=== PATIENT | male | born 1960 | race Caucasian/White ===

== ENCOUNTER 2019-09-03 02:09 | Emergency (ER) | payer MEDICARE, SELFPAY ==
[2019-09-03 02:11] VITALS: BP 212/94; PULSE 85; RESP 16; TEMP 36.3; O2SAT 96; BMI 42.3
--- NOTE | 2019-09-03 02:19 | ED.VIS.GEN ---
History of Present Illness Chief Complaint: Dental Informant: Patient Narrative: Presents with 2 to 3-day history of left upper dental pain and some facial swelling. He has no fever chills or difficulty swallowing. He cannot get in to see a dentist secondary to coronavirus. Past Medical History - Allergies and Home Meds Allergies/Adverse Reactions: Allergies acetaminophen [From Tylenol] Allergy (Verified 09/03/19 02:11) Vomiting LYMPHEDEMA ibuprofen Allergy (Verified 09/03/19 02:11) Vomiting LYPHEMEDMA codeine Adverse Reaction (Verified 10/04/13 00:43) Nausea Primary Care Physician: Juani Kimball MD [Primary Care Provider] - Past Medical History: - - Lymphedema, depression, chronic pain Smoking Status: Former smoker Review of Systems All systems negative except as indicated General: Denies: Fever Eyes: Denies: Visual changes - bilaterally ENT: Reports: - - Dental pain as in HPI Cardiovascular: Denies: Chest pain Gastrointestinal: Denies: Vomiting Skin: Denies: Rash Neurological: Denies: Headache Hematologic: Denies: Easy bleeding Physical Exam Vital Signs/Narrative: Vital Signs Temp Pulse Resp BP Pulse Ox 09/03/19 02:11 97.3 F L 85 16 212/94 H 96 General: Well nourished, Well developed Head: Normocephalic ENT: - - Dental exam shows tenderness over the left upper first molar, there is some edema but no periapical abscess that can be drained. Normal soft palate. Normal voice. Neck: Supple, Nontender Cardiovascular: Regular rate Respiratory: No distress Skin: Normal color Neurological: Negative for: Left side facial droop Diagnostic/Tx/Re-eval - Medical Decision Making Patient has dental pain, he has a dental infection he does not have a drainable abscess I will discharge with antibiotics. He is on chronic analgesia for home therefore I will give him analgesia in the ER and he can take his regular analgesia at home. ED Disposition - Plan for ED Patient: Disposition: Home or Assisted Living Diagnosis: Dental infection Instructions: Dental Abscess, ED Abscess Tooth Prescriptions: Clindamycin [Cleocin] 300 mg PO TID #42 cap Transmission Status: Pending to [id number] Referrals: Juani Kimball MD [Primary Care Provider] -
[2019-09-03] MEDS: HYDROmorphone 1 MG/ML Syringe SC (02:26)
[2019-09-03] MEDS: Clindamycin HCl 150 MG Capsule 300 MG PO (02:29)
[2019-09-03 02:49] VITALS: BP 186/78; PULSE 82; RESP 16; O2SAT 96
== END 2019-09-03 02:50 | disposition home or self-care (01) ==
LOC: ED 02:50
PROVIDERS: Emergency Provider Emergency Medicine; PCP Internal Medicine
DX: K04.7 Periapical abscess without sinus (principal); Z87.891 Personal history of nicotine dependence
CPT/HCPCS: 96372; 99283

== ENCOUNTER 2020-09-08 14:18 | Inpatient (IN) | payer MEDICARE, SELFPAY ==
[2020-09-08] VITALS (10 sets, daily range): BP systolic 139–190; BP diastolic 76–103; PULSE 74–124; RESP 15–19; TEMP 36.7–37.1; O2SAT 92–100; BMI 38.9; BMI 39.1
--- NOTE | 2020-09-08 14:34 | ED.RN ---
and pt reported slurred speech and rt side feeling funny and face twisted up with slurred speech' upon squad getting to house cinn scale neg. bs wnl. pt unable to get thoughts out navneet more complex. hx tbi 11yrs ago but recent wax and wans of confusion and memory issues per . way worse though yesterday
--- NOTE | 2020-09-08 14:37 | EKG12_ITS ---
Test Reason : STROKE Blood Pressure : / mmHG Vent. Rate : 091 BPM Atrial Rate : 091 BPM P-R Int : 188 ms QRS Dur : 100 ms QT Int : 404 ms P-R-T Axes : 045 -34 029 degrees QTc Int : 496 ms Poor data quality, interpretation may be adversely affected Normal sinus rhythm Left axis deviation Poor R wave progression Abnormal ECG Confirmed by LUIS WINN, ANNA ([id number]), managing editor JUSTIN COUGHLIN ([id number]) on 09/11/2020 11:03:51 AM Referred By: Marques Tubbs Confirmed By:ANNA SMITH MD
--- NOTE | 2020-09-08 14:37 | CT_ITS ---
We are attempting to reach an attending provider to discuss findings. An addendum with communication details will be sent when the communication is complete. STUDY: CT BRAIN WITHOUT CONTRAST REASON FOR EXAM: Male, 60 years old. RADIATION DOSAGE (If Supplied By Facility): CTDIvol = ( ) mGy, DLP = ( ) mGycm TECHNIQUE: Transaxial CT imaging of the brain was performed without administration of intravenous contrast material. Individualized dose optimization techniques were used for this CT. COMPARISON: No relevant priors. FINDINGS: Examination is mildly technically suboptimal. Image noise is increased and cramer-white matter differentiation is poor. Diagnostic information is available. Brain parenchyma is without focal lesions, mass effect, acute intracranial hemorrhage, extra parenchymal fluid collections, hydrocephalus or herniation. The skull is intact. CT/STROKE Brain/Head without Cont IMPRESSION: 1. Normal CT brain. Electronically Signed: Rigoberto Bergeron MD at 15:14 EDT Tel , Service support ,
--- NOTE | 2020-09-08 14:37 | RAD_ITS ---
STUDY: X-RAY CHEST REASON FOR EXAM: Male, 60 years old. Neuro deficit, acute, stroke suspected TECHNIQUE: Frontal view of the chest COMPARISON: None. FINDINGS: Inspiratory volumes are low. There is possibly mild pulmonary edema. Cardiac silhouette is moderately enlarged. There is likely basal atelectasis. There are no moderate or large pleural effusions. There is no pneumothorax or regional opacities. Surgical anchors are implanted into the right humerus, rotator cuff repair. RAD/Chest 1 View IMPRESSION: Cardiomegaly, possibly mild pulmonary edema. Atelectasis. Electronically Signed: Rigoberto Bergeron MD at 15:20 EDT Tel , Service support ,
--- NOTE | 2020-09-08 14:38 | CT_ITS ---
We are attempting to reach an attending provider to discuss findings. An addendum with communication details will be sent when the communication is complete. STUDY: CTA HEAD AND NECK WITH CONTRAST REASON FOR EXAM: Male, 60 years old. Neuro deficit, acute, stroke suspected RADIATION DOSAGE (If Supplied By Facility): CTDIvol = ( 23.52 ) mGy, DLP = ( 1084.74 ) mGycm TECHNIQUE: CT angiography was performed with a multi-detector CT scanner. Data acquisition was obtained from the skull base through the vertex following intravenous administration of IV 100ML ISOVUE 370. MIP images were reconstructed from the axial data set. Post-processing of the angiographic images was performed, with multiplanar reformation and 3D reconstruction. Individualized dose optimization techniques were used for this CT. COMPARISON: No relevant priors. FINDINGS: Normal bilateral petrous carotid arteries. Normal right cavernous carotid artery with a normal supraclinoid bifurcation. Normal left cavernous carotid artery with a normal supraclinoid bifurcation. Normal right A1 segments of the anterior cerebral artery. Normal left A1 segments of the anterior cerebral artery. Normal intact anterior communicating artery (ACOM). Normal bilateral A2 segments of the anterior cerebral arteries. Normal right M1 and M2 segments of the middle cerebral arteries, with a normal M1 bifurcation. Normal left M1 and M2 segments of the middle cerebral arteries, with a normal M1 bifurcation. Posterior commuting arteries are not seen. Normal bilateral vertebral arteries. Normal basilar artery with a normal basilar bifurcation. The visualized bilateral superior cerebellar (SCA) arteries are normal. Normal bilateral P1, P2 and visualized P3 segments of the posterior cerebral arteries. There is no demonstrated aneurysm of the [place] of [place]. AORTIC ARCH: Normal visualized aortic arch. Normal origins of the brachiocephalic, left common carotid, and left subclavian arteries. RIGHT CAROTID ARTERIES: Normal right common carotid artery (CCA). Normal right common carotid bulb. Normal origin of the right internal carotid (ICA) artery without a hemodynamically significant stenosis. Normal visualized cervical portion of the right internal carotid artery. Normal origin of the right external carotid artery (ECA). LEFT CAROTID ARTERIES: Normal left common carotid artery (CCA). Normal left common carotid bulb. Normal origin of the left internal carotid (ICA) artery without a hemodynamically significant stenosis. Normal visualized cervical portion of the left internal carotid artery. Normal origin of the left external carotid artery (ECA). VERTEBRAL ARTERIES: Normal bilateral vertebral arteries. CT/STROKE CTA Head AND Neck W/Con IMPRESSION: Patent craniocervical arteries. No intracranial large vessel occlusion. Electronically Signed: Rigoberto Bergeron MD at 15:17 EDT Tel , Service support ,
--- NOTE | 2020-09-08 14:39 | EDS_ITS ---
HPI History of Present Illness Chief Complaint: Neuro S/Sx Informant: patient, spouse/S.O. and EMS Onset/Context/Timing Onset: - (Unclear, see below) Current Severity: Mild Maximum Severity: Severe Worsened by: unk Relieved by: unk Associated Symptoms Associated Symptoms: Negative for Headache, Nausea, Vomiting and Chest Pain Narrative Narrative: Patient has a history of a remote TBI and has had memory problems ever since then. Yesterday, the noted that the memory problems were much worse than usual, he was having trouble remembering where he was while driving where he was going, etc. Today he was having trouble remembering her name which is very unusual. He is having trouble just remembering what he was going to say and is having trouble finishing sentences now. He states that just a little while ago he had tingling in the right side of his body, suggest that he had a facial droop on one side or the other, and the symptoms but all of that is better now except for the memory and speech problems. He cannot tell me how lo ng ago this started, he does not think he had any of the symptoms yesterday. He denies having any headache, chest pain, nausea, vomiting, lapses in consciousness. [facility] Medical History (Updated 09/08/20 @ 16:[address] Dwight Ely MD) Anxiety Asthma Chronic pain Depression Former smoker GERD (gastroesophageal reflux disease) History of wrist fracture Lymph edema Mild TBI (traumatic brain injury) Home Medications escitalopram oxalate 20 mg PO DAILY 10/04/13 [History Last Taken Unknown] furosemide 40 mg PO DAILY 10/04/13 [History Last Taken Unknown] oxycodone-acetaminophen 2 tab PO Q4H PRN PRN #90 tablet 06/07/15 [Rx Last Taken Unknown] Allergy/AdvReac Type Severity Reaction Status Date / Time acetaminophen [From Tylenol] Allergy Vomiting Verified 09/08/20 14:25 ibuprofen Allergy Vomiting Verified 09/08/20 14:25 codeine AdvReac Nausea Verified 09/08/20 14:25 Surgical History (Updated 09/08/20 @ 14:42 by Glendy Chery) History of carpal tunnel surgery History of knee joint replacement History of shoulder surgery Social History (Updated 09/08/20 @ 14:[address] Dwight Ely MD) household members: spouse Smoking Status: Former smoker ROS ROS ED Constitutional Constitutional ED: Denies chills or fever(s) Eyes Eyes: Denies change in vision or diplopia ENT ENT ED: Denies rhinorrhea or sore throat Cardiovascular Cardiovascular: Denies chest pain or palpitations Respiratory/Chest Respiratory/Chest: Denies cough or dyspnea Gastrointestinal Gastrointestinal: Denies abdominal pain, diarrhea, nausea or vomiting Genitourinary Genitourinary ED: Denies dysuria or hematuria Musculoskeletal Musculoskeletal: Denies back pain or neck pain Integumentary Denies abscess or rash Neurologic Neurologic: Reports as per HPI and paresthesias; Denies headache(s) or weakness Psychiatric Psychiatric: Denies anxiety or suicidal thoughts EXAM Physical Exam Const Vital Signs: 09/08/20 14:19 09/08/20 14:37 09/08/20 16:03 Temperature 98.7 F Temperature Source Temporal Pulse Rate 89 88 89 Respiratory Rate 16 17 15 Blood Pressure 176/99 H 190/103 H 167/94 H Blood Pressure Mean 124 132 118 Pulse Ox 98 96 96 Oxygen Delivery Method Room Air Room Air Room Air Positive well nourished and well developed General Appearance ED: well developed and NAD HEENT Reports moist mucous membranes normocephalic and atraumatic Eyes PERRL and EOMs intact bilaterally Neck full ROM and supple Resp normal respiratory effort and clear to auscultation bilaterally Cardio regular rate, regular rhythm and no murmurs GI non-tender and non-distended Auscultation: normoactive bowel sounds Palpation: soft Back/Spine no CVA tenderness General Back: other FROM Extremity normal to inspection Extremity Narrative: 2+ bilateral lower extremity edema, with chronic stasis changes, consistent with chronic abnormality per patient General Extremety ED: Yes edema; Negative for pulses abnormal or tenderness General Extremity: edema; Negative for pulses abnormal Neuro oriented x3, CN's II-XII intact bilaterally and no sensory deficits noted Sensorium / Orientation: awake and alert Motor Exam: strength 5/5 throughout Skin no rashes or lesions noted and no wounds STROKE Vital Signs/Narrative: Vital Signs Temp Pulse Resp BP Pulse Ox 09/08/20 16:03 89 15 167/94 H 96 09/08/20 14:37 88 17 190/103 H 96 09/08/20 14:19 98.7 F 89 16 176/99 H 98 NIHSS Initial: 1a Level of Consciousness: 0 1b LOC Questions (Score 2 if aphasic/stupor): 2 1c LOC Commands (Only score 1st attempt): 0 2 Best Gaze (If aphasic, use reflexive mvmts.): 0 3 Visual: 0 4 Facial Palsy: 0 5 Motor Arm Right (UN = amputation/fusion): 0 5 Motor Arm Left: 0 6 Motor Leg Right: 0 6 Motor Leg Left: 0 7 Limb ataxia (Only + if out of proportion): 0 8 Sensory (Aphasia/stupor=0 or 1, coma=2): 0 9 Best Language: 1 (Can speak clearly but suddenly stops and can no longer say or remember what he wanted to) 10 Dysarthria (mute, coma=2, intubated=UN): 0 11 Extinction and Inattention (only scored if +): 0 Total Score: 3 MDM MDM MDM Narrative Medical decision making narrative: I became aware of this patient once I initially saw in the room. Apparently EMS wanted to call stroke team but the patient had no symptoms and no findings, so it was not called. Since the and patient indicate that he was having abnormal neurologic symptoms yesterday and they could not give me a definitive last known normal, and furthermore indicates that he may have started having gradual onset of his memory problem for longer than that but cannot tell me at all how many days or how long, I chose not to call a stroke team but I ordered the same work-up that we normally would have including CT angiography in case there was something more acute going on that could cause an LVO. I discussed with the stroke neurologist on-call, who agreed with doing it just this way, and agreed that given the history, the patient would not be an IV TPA candidate. CT angiography as below shows no LVO. On reevaluation the patient's speech abnormalities are totally back to normal and he knows his age and month. Consistent with a TIA. Will admit for further work-up. Lab Data Attestation: I reviewed the patient's lab results. Labs: Laboratory Results - last 24 hr 09/08/20 09/08/20 09/08/20 14:30 14:30 14:30 WBC 9.4 RBC 5.09 Hgb 15.6 Hct 46.3 MCV 91.0 MCH 30.6 MCHC 33.7 RDW Std Deviation 42.1 RDW Coeff of [place] 12.8 Plt Count 338 MPV 9.4 Immature Gran % (Auto) 0.300 Neut % (Auto) 69.7 Lymph % (Auto) 19.1 [place] % (Auto) 9.0 Eos % (Auto) 1.2 Baso % (Auto) 0.7 Absolute Neuts (auto) 6.5 Absolute Lymphs (auto) 1.79 Nucleated RBC % 0 PT 12.9 INR 1.0 APTT 25.3 Sodium 137 Potassium 3.8 Chloride 103 Carbon Dioxide 31.0 Anion Gap 3 L BUN 18 Creatinine 1.07 Estim Creat Clear Calc 78.57 Est GFR (MDRD) Af Amer 90 Est GFR (MDRD) Non-Af 74 BUN/Creatinine Ratio 16.8 Glucose 92 Calcium 9.4 Troponin I < 0.015 Radiography Diagnostic Testing: Radiology Impression Brain CT 09/08/20 14:37 IMPRESSION: 1. Normal CT brain. Electronically Signed: Rigoberto Bergeron MD at 15:14 EDT Tel , Service support , ADDENDUM: 09/08/20 1528 IMPRESSION: 1. Normal CT brain. N.B. : The above information has been verbally conveyed by Rigoberto Bergeron MD to Dwight Ely MD, on 09/08/2020 15:21:43 (ET). Electronically Signed: Rigoberto Bergeron MD at 15:14 EDT Tel , Service support , Chest X-Ray 09/08/20 14:37 IMPRESSION: Cardiomegaly, possibly mild pulmonary edema. Atelectasis. Electronically Signed: Rigoberto Bergeron MD at 15:20 EDT Tel , Service support , Head/Neck CTA 09/08/20 14:38 IMPRESSION: Patent craniocervical arteries. No intracranial large vessel occlusion. Electronically Signed: Rigoberto Bergeron MD at 15:17 EDT Tel , Service support , ADDENDUM: 09/08/20 1528 IMPRESSION: Patent craniocervical arteries. No intracranial large vessel occlusion. N.B. : The above information has been verbally conveyed by Rigoberto Bergeron MD to Dwight Ely MD, on 09/08/2020 15:21:40 (ET). Electronically Signed: Rigoberto Bergeron MD at 15:17 EDT Tel , Service support , EKG Initial EKG: Attestation: I personally reviewed and interpreted this EKG as follows: Interpretation: Sinus Rhythm, No Acute Injury Pattern and - (left axis) Stroke Documentation Questions Stroke Team Activated: No (Prehospital EMS wanted to call team, but pt w/o sx or findings at time) Was Patient considered for Endovascular Intervention?: No (neg CTA) IV Alteplase (t-PA) Administered: No (Timing unknown and with symptoms yesterday, unclear if indicative CVA onset) Critical Care Time Critical Care Time: Yes Critical care time (excluding procedures): 30-74 minutes (35 min), Including time spent:, Discussing w/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
[2020-09-08 14:48] LABS: Absolute Lymphocyte Count 1.79 X10^3/uL (0.83-4.51); Absolute Neutrophil Count 6.5 X10^3/uL (2.0-7.7); Basophil# 0.07 X10^3/uL; Basophil% 0.7 % (0-1); Eosinophil# 0.11 X10^3/uL; Eosinophils% 1.2 % (0-5); Hematocrit 46.3 % (40-54); Hemoglobin 15.6 g/dL (13.0-16.5); Lymphocyte # 1.79 X10^3/ul (0.83-4.51); Lymphocyte % 19.1 % (19-41); Mean Corp Hgb Conc 33.7 g/dL (32-36); Mean Corpuscular Hgb 30.6 pg (27.0-32.0); Mean Platelet Vol. 9.4 fl (6.2-12.0); Monocyte# 0.84 X10^3/uL; NRBC Flagged by Analyzer 0 % (0-5); Neutrophil # 6.54 X10^3/uL (2.7-7.7); Neutrophil % 69.7 % (47-70); Platelet Count 338 K/mm3 (150-450); RBC Distribution Width CV 12.8 % (11.6-14.6); RBC Distribution Width SD 42.1 fl (35.1-43.9); Red Blood Count 5.09 M/mm3 (4.6-6.2); White Blood Count 9.4 K/mm3 (4.4-11.0)
--- NOTE | 2020-09-08 14:50 | ED.RN ---
PER DR. ARANDA, PT NOT A STROKE TEAM, BUT WOULD LIKE [facility]. TEACHING ASSOCIATE INFORMED.
[2020-09-08 14:56] LABS: Prothrombin Time (Protime)PT. 12.9 SECONDS (11.7-14.9)
[2020-09-08 14:57] LABS: Partial Thromboplast Time 25.3 Seconds (24.1-36.2)
[2020-09-08 15:11] LABS: Anion Gap 3 (5-15); BUN 18 mg/dL (7-18); BUN/Creat Ratio 16.8 RATIO (10-20); Calcium,Total 9.4 mg/dL (8.5-10.1); Chloride 103 mmol/L (98-107); Creatinine, Serum 1.07 mg/dL (0.70-1.30); EST Glomerular Filtration Rate 74 mL/min (>60); Est Glom Filt Rate - Afr Amer 90 mL/min (>60); Estimated Creatinine Clearance 78.57 ml/min; Glucose 92 mg/dL (74-106); Potassium 3.8 mmol/L (3.5-5.1); Sodium Level 137 mmol/L (136-145)
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
--- NOTE | 2020-09-08 19:50 | ECHOD_ITS ---
Reason For Study: TIA/CVA Procedure This was a 2D Doppler, Color Flow transthoracic echocardiogram. Bubble Study performed. Exam performed portable in patient room. Left Ventricle Normal LV size. Moderate concentric left ventricular hypertrophy. Left ventricular systolic function is normal. The estimated ejection fraction is 60 %. No regional wall motion abnormalities noted. Right Ventricle Normal RV size. Normal systolic function. Atria Normal left atrium. Normal right atrium. Bubble contrast study negative for right to left interatrial shunt. Mitral Valve Normal mitral valve. Tricuspid Valve Normal tricuspid valve. Pericardium/Pleural No pericardial effusion. Medication Performed a rapid injection of agitated mix of 9 cc saline and 1cc air to assess for atrial septal defect. MMode/2D Measurements & Calculations LVIDd: 4.5 cm IVSd: 2.0 cm LA dimension: 4.6 cm LVIDs: 2.8 cm LVPWd: 1.6 cm FS: 37.5 % LAV(MOD-bp): 52.7 ml LA A4 area: 17.1 cm2 RA A4 area: 16.0 cm2 LAV(MOD-bp) Indexed: 21.7 ml/m2 LAV(MOD-sp2): 55.2 ml LAV(MOD-sp4): 49.7 ml Time Measurements MV dec time: 0.23 sec Doppler Measurements & Calculations MV E max amado: 114.5 cm/sec Lat Peak E' Amado: 8.9 cm/sec Med Peak E' Amado: 7.5 cm/sec MV A max amado: 99.1 cm/sec E/E' lat: 12.9 E/E' med: 15.3 MV E/A: 1.2 MV V2 max: 124.2 cm/sec MV P1/2t max amado: 124.2 cm/sec Ao V2 max: 131.9 cm/sec MV max P.2 mmHg MV P1/2t: 69.8 msec Ao max P.0 mmHg MV V2 mean: 69.6 cm/sec MV mean P.3 mmHg MV dec slope: 521.6 cm/sec2 MV V2 VTI: 42.3 cm MVA(P1/2t): 3.2 cm2 LV V1 max: 114.8 cm/sec PA V2 max: 131.9 cm/sec LV V1 max P.3 mmHg ECHO/Echo Complete Interpretation Summary Normal LV size. Moderate concentric left ventricular hypertrophy. Left ventricular systolic function is normal. The estimated ejection fraction is 60 %. Bubble contrast study negative for right to left interatrial shunt. Contrast injection was performed. Ordering Physician: Marques Tubbs Referring Physician: Juani Kimball M.D. Performed By: Richy Llamas RCS
[2020-09-08] MEDS: Aspirin 325 MG Tablet PO (20:16)
[2020-09-08] MEDS: Furosemide 40 MG Tablet PO (20:16)
[2020-09-08] MEDS: Acetaminophen 325 MG Tablet 650 MG PO (20:17)
[2020-09-08] MEDS: oxyCODONE 5 MG Tablet 10 MG PO (20:17)
[2020-09-08] MEDS: Escitalopram Oxalate 20 MG Tablet PO (20:27)
[2020-09-09] VITALS (12 sets, daily range): BP systolic 135–170; BP diastolic 68–93; PULSE 60–76; RESP 16–18; TEMP 36.2–36.7; O2SAT 95–97; BMI 38.9
[2020-09-09 06:41] LABS: Cholesterol 204 mg/dL (200); High Density Lipoprotein 51 mg/dL; Triglycerides 88 mg/dL; Very Low Density Lipoprotein 18 mg/dL (5-40)
[2020-09-09] MEDS: Furosemide 40 MG Tablet PO (08:28)
[2020-09-09] MEDS: Acetaminophen 325 MG Tablet 650 MG PO ×2 (08:28→19:49)
[2020-09-09] MEDS: oxyCODONE 5 MG Tablet 10 MG PO ×2 (08:28→19:48)
[2020-09-09] MEDS: Enoxaparin 40 MG/0.4 ML Syringe SC (08:28)
[2020-09-09] MEDS: Aspirin 81 MG TAB.CHEW PO (08:28)
--- NOTE | 2020-09-09 11:52 | PN.HOSP_ITS ---
Documented by User: Chon JOHNSON 09/09/20 12:14 Subjective Subjective: Patient is a 60-year-old male complete resting in bed, alert and oriented x3. Patient reports resolution of his confusion, right arm spasms and slurred speech. Patient reports the still occasionally mom mumbling his words, but reports that this has been going on for the past 2 years. Patient able to provide deep insight and ample history to his symptoms. Objective Data Objective Data Vital Signs: Vital Signs Temp Pulse Resp BP Pulse Ox 98.1 F 67 18 170/93 H 97 09/09/20 08:10 09/09/20 08:10 09/09/20 08:10 09/09/20 08:10 09/09/20 08:16 Oxygen Delivery Method Room Air Weight: 279 lb 1.683 oz Body Mass Index (BMI) 38.9 Finger Stick Blood Glucose 93 Intake & Output: Intake and Output for Last 24 Hours 09/07/20 09/08/20 09/09/20 23:59 23:59 23:59 Intake Total 664.62 / 884.62 420 / 420 Output Total 0 / 375 375 / 375 Balance 664.62 / 509.62 45 / 45 Lab / Micro Data Result Diagrams: 09/08/20 14:30 09/08/20 14:30 Labs: Laboratory Results - last 24 hr 09/08/20 09/08/20 09/08/20 14:30 14:30 14:30 WBC 9.4 RBC 5.09 Hgb 15.6 Hct 46.3 MCV 91.0 MCH 30.6 MCHC 33.7 RDW Std Deviation 42.1 RDW Coeff of Santana 12.8 Plt Count 338 MPV 9.4 Immature Gran % (Auto) 0.300 Neut % (Auto) 69.7 Lymph % (Auto) 19.1 Wise % (Auto) 9.0 Eos % (Auto) 1.2 Baso % (Auto) 0.7 Absolute Neuts (auto) 6.5 Absolute Lymphs (auto) 1.79 Nucleated RBC % 0 PT 12.9 INR 1.0 APTT 25.3 Sodium 137 Potassium 3.8 Chloride 103 Carbon Dioxide 31.0 Anion Gap 3 L BUN 18 Creatinine 1.07 Estim Creat Clear Calc 78.57 Est GFR (MDRD) Af Amer 90 Est GFR (MDRD) Non-Af 74 BUN/Creatinine Ratio 16.8 Glucose 92 Calcium 9.4 Troponin I < 0.015 Triglycerides Cholesterol LDL Cholesterol VLDL Cholesterol HDL Cholesterol 09/09/20 05:50 WBC RBC Hgb Hct MCV MCH MCHC RDW Std Deviation RDW Coeff of Santana Plt Count MPV Immature Gran % (Auto) Neut % (Auto) Lymph % (Auto) Wise % (Auto) Eos % (Auto) Baso % (Auto) Absolute Neuts (auto) Absolute Lymphs (auto) Nucleated RBC % PT INR APTT Sodium Potassium Chloride Carbon Dioxide Anion Gap BUN Creatinine Estim Creat Clear Calc Est GFR (MDRD) Af Amer Est GFR (MDRD) Non-Af BUN/Creatinine Ratio Glucose Calcium Troponin I Triglycerides 88 Cholesterol 204 H LDL Cholesterol 135 H VLDL Cholesterol 18 HDL Cholesterol 51 Radiography Diagnostic Testing: Radiology Impression Brain CT 09/08/20 14:37 IMPRESSION: 1. Normal CT brain. Electronically Signed: Rigoberto Bergeron MD at 15:14 EDT Tel , Service support , ADDENDUM: 09/08/20 1528 IMPRESSION: 1. Normal CT brain. N.B. : The above information has been verbally conveyed by Rigoberto Bergeron MD to Dwight Ely MD, on 09/08/2020 15:21:43 (ET). Electronically Signed: Rigoberto Bergeron MD at 15:14 EDT Tel , Service support , Chest X-Ray 09/08/20 14:37 IMPRESSION: Cardiomegaly, possibly mild pulmonary edema. Atelectasis. Electronically Signed: Rigoberto Bergeron MD at 15:20 EDT Tel , Service support , Head/Neck CTA 09/08/20 14:38 IMPRESSION: Patent craniocervical arteries. No intracranial large vessel occlusion. Electronically Signed: Rigoberto Bergeron MD at 15:17 EDT Tel , Service support , ADDENDUM: 09/08/20 1528 IMPRESSION: Patent craniocervical arteries. No intracranial large vessel occlusion. N.B. : The above information has been verbally conveyed by Rigoberto Bergeron MD to Dwight Ely MD, on 09/08/2020 15:21:40 (ET). Electronically Signed: Rigoberto Bergeron MD at 15:17 EDT Tel , Service support , Physical Exam Narrative See subjective. Const alert, oriented x3 and no apparent distress HEENT head/scalp atraumatic and moist oral mucous membranes Head and Scalp: normocephalic Eyes EOMs intact bilaterally Neck no lymphadenopathy, supple and no JVD Resp normal respiratory effort Cardio regular rate, regular rhythm and no murmurs GI normal to inspection, nondistended, normoactive bowel sounds, soft to palpation and non-tender Extremity normal to inspection and full ROM Skin no rashes or lesions noted and no wounds Neuro CN's II-XII intact bilaterally Neuro Narrative: Patient does still occasionally mumble his words, but does not appear to have slurred speech as he did on admission. Psych affect normal Assessment & Plan Assessment/Plan (1) Brain TIA: Status: Acute Code(s): G45.9 - Transient cerebral ischemic attack, unspecified Plan: Patient is a 60-year-old male who presented to the ED on 09/08/2020 with a chief complaint of confusion, right arm spasms and expressive aphasia. Patient reports a 2-year history of expressive aphasia and periods where his mind will blank out. Patient describes his blackout periods as he will be in the middle of speaking, stop speaking, lose consciousness and cannot remember periods before that. Patient has attempted to discuss these problems with his primary care provider and has not had any extensive neurological work out. Past medical history is significant for history of traumatic brain injury, which puts patient at risk for seizure. 1) TIA vs Seizure On my exam patient did not demonstrate any focal neuro deficits, reports resolu tion of her symptoms from admission. Given the chronicity of his symptoms, believe this may be seizure-like activity. Plan; brain MRI ordered, 2D echocardiogram ordered, fasting panel ordered and EEG ordered. Start aspirin and statin. DVT prophylaxis - Lovenox SC. Patient seen by Chon Vogt PA-C, under the supervision of Dr. Tubbs. (2) Seizure: Status: Acute Code(s): R56.9 - Unspecified convulsions (3) Venous thromboembolism (VTE) prophylaxis provided within 24 hours of arrival: Status: Acute Documented by User: Dr. Marques Tubbs DO 09/09/20 13:24 Objective Data Lab / Micro Data Result Diagrams: 09/08/20 14:30 09/08/20 14:30 Physical Exam Const alert and oriented x3 HEENT Head and Scalp: normocephalic Neuro CN's II-XII intact bilaterally Sensorium / Orientation: awake and alert Assessment & Plan Assessment/Plan (1) Seizure: Status: Acute Code(s): R56.9 - Unspecified convulsions Plan: Patient seen and examined independently. Data reviewed. I agree with the above note by the physician community relations assistant. Suspected. Of possibilities could be TIA versus stroke. Plan is for MRI of the brain, 2D echocardiogram as well as an EEG. Afterwards, recommend consulting SOC teleneurology for further recommendations. Visit Charges Inpatient E&M: 25205 Subs Hosp L2
[2020-09-09] MEDS: Escitalopram Oxalate 20 MG Tablet PO (19:47)
[2020-09-10] VITALS (9 sets, daily range): BP systolic 142–177; BP diastolic 68–87; PULSE 53–74; RESP 16–18; TEMP 36.5–36.7; O2SAT 95–98; BMI 38.9
[2020-09-10 06:45] LABS: Basophil# 0.04 X10^3/uL; Basophil% 0.6 % (0-1); Eosinophil# 0.19 X10^3/uL; Hematocrit 45.1 % (40-54); Hemoglobin 14.8 g/dL (13.0-16.5); Lymphocyte % 23.5 % (19-41); Mean Corp Hgb Conc 32.8 g/dL (32-36); Mean Corpuscular Hgb 30.3 pg (27.0-32.0); Mean Corpuscular Volume 92.4 fL (80-94); Mean Platelet Vol. 9.5 fl (6.2-12.0); Monocyte# 0.66 X10^3/uL; Monocyte% 10.3 % (0-10); NRBC Flagged by Analyzer 0 % (0-5); Neutrophil # 3.97 X10^3/uL (2.7-7.7); Neutrophil % 62.3 % (47-70); Platelet Count 288 K/mm3 (150-450); RBC Distribution Width CV 12.9 % (11.6-14.6); RBC Distribution Width SD 43.9 fl (35.1-43.9); Red Blood Count 4.88 M/mm3 (4.6-6.2); White Blood Count 6.4 K/mm3 (4.4-11.0)
[2020-09-10 07:11] LABS: Anion Gap 5 (5-15); BUN 16 mg/dL (7-18); BUN/Creat Ratio 17.5 RATIO (10-20); Calcium,Total 8.9 mg/dL (8.5-10.1); Chloride 103 mmol/L (98-107); Creatinine, Serum 0.91 mg/dL (0.70-1.30); EST Glomerular Filtration Rate 89 mL/min (>60); Est Glom Filt Rate - Afr Amer 108 mL/min (>60); Estimated Creatinine Clearance 89.64 ml/min; Glucose 103 mg/dL (74-106); Potassium 4.1 mmol/L (3.5-5.1); Sodium Level 139 mmol/L (136-145)
--- NOTE | 2020-09-10 07:39 | TELEMED_ITS ---
SOC Telemed has confirmed receipt of a request for visit. This document confirms receipt of the order initiating the consult. To find the results of the consultation, please view the patient's reports for the scanned Telemed Consult.
[2020-09-10] MEDS: Aspirin 81 MG TAB.CHEW PO (08:40)
[2020-09-10] MEDS: Enoxaparin 40 MG/0.4 ML Syringe SC (08:40)
--- NOTE | 2020-09-10 09:30 | MRI_ITS ---
STUDY: MRI BRAIN WITHOUT CONTRAST REASON FOR EXAM: Male, 60 years old. Right sided weakness TECHNIQUE: Standardized multiplanar fat and water weighted pulse sequences were obtained. COMPARISON: CT head without contrast 7 09/08/2020. FINDINGS: No diffusion restriction to suspect acute or subacute ischemic infarct. Normal size of the ventricles and extra-axial spaces for the patient''s age. Few tiny T2 FLAIR hyperintensity foci in the white matter of both cerebral hemispheres are presumably secondary to microvascular disease. No midline shift and no mass effects. Normal bilateral basal ganglia. Normal thalami. There is no extra-axial fluid accumulation. Normal flow voids within the major intracranial circulation suggesting patency by spin echo criteria. Normal sella turcica, pituitary gland, infundibular stalk, optic chiasm and hypothalamus. Normal tectal plate and pineal gland. Normal midbrain, manoj and medulla. Normal cerebellum. Normal basal cisterns. Normal bilateral temporal bones. Normal bilateral internal auditory canals. No demonstrated orbital abnormality, within the constraints of a routine brain study. Normal visualized paranasal sinuses. Normal calvarium and skull base. Normal visualized soft tissue structures. Normal visualized upper cervical spine. MRI/Brain without Contrast IMPRESSION: 1. No MRI evidence of acute or subacute ischemic infarct or acute intracranial abnormality. 2. Few tiny chronic white matter ischemic changes in both cerebral hemispheres. Electronically Signed: Keyshawn Nelson MD at 15:02 EDT , Service support ,
--- NOTE | 2020-09-10 10:56 | CASEMGMT ---
SAMREEN ROE Assessment: Face to Face with pt for initial transition planning/care coordination assessment. RN BHUPINDER introduced self and role at [facility], pt voices understanding and consents to assessment. Pt is A/O x4 and answers all questions appropriately at this time. Pt sitting up in chair with at bedside. Care providers, pharmacy, and demographics verified/updated. Admitting Dx: encephalopathy PCP: [facility] Specialists: Pt denies having any specialists. Preferred [facility]acy: [facility] Insurance: [facility] Prescription Benefit: yes LW/HPOA: Pt denies having a LW/DPOA. LNOK: Eloisa; Sanam Khan,mother Living Arrangements: Pt lives with in a single story house with one step to enter. Pt is I in ADL's. Denies concerns at home. Transportation: Pt drives self and denies issues with transportation. DME/HHC/SNF: Pt has a cane, walker and crutches at home. Denies any previous HHC or SNF stays. Pt states no concerns with going home at time of dc. Pt states no further concerns/needs. CM to follow. Advised pt to ask CM if any further question/concerns/needs arise, voices understanding. Pt Goal: Home Plan: Home with family support.
--- NOTE | 2020-09-10 12:43 | PCM.DC ---
Discharge Instructions Outpatient Procedure Reason For Visit: ENCEPHALOPATHY Diet Discharge Diet: No restrictions Activity Discharge Activity: Return to Normal Activity and May Not Drive (No driving for at least 6 months or when specified by your outpatient neurologist.) Follow Up Care Please Follow Up With: Dr. Galileo Patel When: Within the next 2 weeks. Test Results: Test results from this visit will be discussed in further detail at your follow-up appointment, if applicable. Discharge Plan Admission Admit Date/Time: 09/09/20 17:28 Primary Reason for Your Visit: Seizure Attending Provider: Cierra Shepard Primary Care Provider: Juani Kimball Instructions Patient Instructions: Diagnosing Epilepsy, Self-Care for Epilepsy, Epilepsy: Safety During a Seizure Discharge Orders/Prescriptions Prescriptions: New levetiracetam [Keppra] 750 mg tablet 750 mg PO BID Qty: 30 RF: 0 lisinopril 10 mg tablet 10 mg PO DAILY Qty: 30 RF: 0 No Action furosemide 40 MG tablet 40 mg PO DAILY RF: 0 escitalopram oxalate 20 MG tablet 20 mg PO DAILY RF: 0 oxycodone-acetaminophen 1 TABLET tablet 2 tab PO Q4H PRN PRN (Reason: Severe Pain (6-10/10)) Qty: 90 RF: 0 Referrals: Juani Kimball MD [Primary Care Provider] - Disposition Disposition (needs filled in before D/C Order can be placed): Home, self care
--- NOTE | 2020-09-10 12:51 | PCM.DC.SUM ---
Providers Date of Admission: 09/09/20 Primary Care Physician: Dr. Juani Kimball MD Reason For Visit: ENCEPHALOPATHY Diagnosis Discharge Diagnosis (1) Seizure: Status: Acute Code(s): R56.9 - Unspecified convulsions (2) Hypertension: Status: Chronic Code(s): I10 - Essential (primary) hypertension (3) Brain TIA: Status: Acute Code(s): G45.9 - Transient cerebral ischemic attack, unspecified (4) Venous thromboembolism (VTE) prophylaxis provided within 24 hours of arrival: Status: Acute Medications at Discharge Home Medications escitalopram oxalate 20 mg PO DAILY 10/04/13 furosemide 40 mg PO DAILY 10/04/13 oxycodone-acetaminophen 2 tab PO Q4H PRN PRN #90 tablet 06/07/15 levetiracetam [Keppra] 750 mg PO BID #60 tab 09/10/20 lisinopril 10 mg PO DAILY #30 tab 09/10/20 Hospital Course Summary of Care Provided Minutes Spent on Discharge: 35 Hospital Course: Patient is a 60-year-old male who presented to the ED on 09/08/2020 with a chief complaint of confusion, right arm spasms and expressive aphasia. Patient reports a chronicity to his symptoms, however was urged by his to be admitted to the hospital due to the slurred speech. SOC teleneurology consult obtained and believe that patient is suffering from focal seizures. Given the absence of any focal neuro deficits, evidence of ischemia/infarction on imaging and the chronicity of patient's symptoms, low suspicion for stroke. Keppra initiated on discharge, if tolerated well, patient will be discharged later on today. 1) Seizure SOC consult completed, as above. Brain MRI demonstrated no evidence of acute or subacute ischemic infarct or acute intracranial abnormality. Plan; Keppra 750mg PO BID initiate on discharge, follow-up with neurology within the next 2 weeks. 2) Hypertension Blood pressure not within goal throughout admission, currently 177/79. Patient only on Lasix 40 mg p.o. daily. Plan; initiate lisinopril 10 mg p.o. daily on discharge, follow-up with primary care provider within the next 2 weeks. Patient seen by Chon Vogt PA-C, under the supervision of Dr. Shepard. Physical Exam Narrative Patient is a 60-year-old male comfortably resting in bed, alert and oriented x3. Patient reports resolution of his confusion, right arm spasms and slurred speech. Patient reports the still occasionally mom mumbling his words, but reports that this has been going on for the past 2 years. Denies headache, vision changes, chest pain, shortness of breath, palpitations, fever, chills, and/V/D. Const alert, oriented x3 and no apparent distress HEENT normocephalic and head/scalp atraumatic Eyes EOMs intact bilaterally Neck no lymphadenopathy, supple and no JVD Resp normal respiratory effort, no use of accessory muscles and clear to auscultation bilaterally Cardio regular rate, regular rhythm, no murmurs and no rub GI normal to inspection, nondistended, normoactive bowel sounds, soft to palpation and non-tender Extremity full ROM Skin no rashes or lesions noted and no wounds Neuro CN's II-XII intact bilaterally Psych affect normal ABG / Lab / Microbiology Data Result Diagrams: 09/10/20 06:05 09/10/20 06:05 Laboratory: Laboratory Results - last 24 hr 09/10/20 09/10/20 06:05 06:05 WBC 6.4 RBC 4.88 Hgb 14.8 Hct 45.1 MCV 92.4 MCH 30.3 MCHC 32.8 RDW Std Deviation 43.9 RDW Coeff of Santana 12.9 Plt Count 288 MPV 9.5 Immature Gran % (Auto) 0.300 Neut % (Auto) 62.3 Lymph % (Auto) 23.5 [facility] % (Auto) 10.3 H Eos % (Auto) 3.0 Baso % (Auto) 0.6 Absolute Neuts (auto) 4.0 Absolute Lymphs (auto) 1.50 Nucleated RBC % 0 Sodium 139 Potassium 4.1 Chloride 103 Carbon Dioxide 31.0 Anion Gap 5 BUN 16 Creatinine 0.91 Estim Creat Clear Calc 89.64 Est GFR (MDRD) Af Amer 108 Est GFR (MDRD) Non-Af 89 BUN/Creatinine Ratio 17.5 Glucose 103 Calcium 8.9 D/C Instructions Discharge Diet: No restrictions Discharge Activity: Return to Normal Activity and May Not Drive (No driving for at least 6 months or when specified by your outpatient neurologist.) Please Follow Up With: Dr. Galileo Patel When: Within the next 2 weeks. Meaningful Use Info Meaningful Use Diagnoses (Choose all that apply): None applicable Discharge Plan Admission Admit Date/Time: 09/09/20 17:28 Primary Reason for Your Visit: Seizure Attending Provider: Cierra Shepard Primary Care Provider: Juani Kimball Instructions Patient Instructions: Diagnosing Epilepsy, Self-Care for Epilepsy, Epilepsy: Safety During a Seizure Discharge Orders/Prescriptions Prescriptions: New lisinopril 10 mg tablet 10 mg PO DAILY Qty: 30 RF: 0 levetiracetam [Keppra] 750 mg tablet 750 mg PO BID Qty: 60 RF: 0 No Action furosemide 40 MG tablet 40 mg PO DAILY RF: 0 escitalopram oxalate 20 MG tablet 20 mg PO DAILY RF: 0 oxycodone-acetaminophen 1 TABLET tablet 2 tab PO Q4H PRN PRN (Reason: Severe Pain (6-02/17)) Qty: 90 RF: 0 Referrals: Juani Kimball MD [Primary Care Provider] - Disposition Disposition (needs filled in before D/C Order can be placed): Home, self care
[2020-09-10] MEDS: levETIRAcetam 750 MG Tablet PO (13:17)
--- NOTE | 2020-09-10 13:41 | CASEMGMT ---
RN CM notified that pt is being dc'd on Keppra and is requesting to know the cost of the med. TC to [facility]. Cost is $26.62. Notified pt of this and he states he is able to afford. No further needs at this time.
--- NOTE | 2020-09-10 14:14 | PHA.DC.MC ---
Pharmacy Service has performed discharge medication reconciliation and counseling for this patient. The patient was counseled on the following discharge medications and changes in medications for homegoing were reviewed. 1. LISINOPRIL 2. KEPPRA The Reason for Use, instructions for use, and potential side effects were reviewed for all new medications. The patient's questions regarding all of their medications were answered. The patient was able to verbally demonstrate an understanding of their discharge medications. Home Medications escitalopram oxalate 20 mg PO DAILY 10/04/13 furosemide 40 mg PO DAILY 10/04/13 oxycodone-acetaminophen 2 tab PO Q4H PRN PRN #90 tablet 06/07/15 levetiracetam [Keppra] 750 mg PO BID #60 tab 09/10/20 lisinopril 10 mg PO DAILY #30 tab 09/10/20 The patient's discharge medication list was reviewed for discrepancies and discrepancies were resolved.
--- NOTE | 2020-09-10 15:10 | CASEMGMT ---
RN informed SW that pt's requesting counseling resources. SW met w/pt in room, pt's just leaving. SW brought in list of local counseling agencies. Pt explains has been in counseling, and in AA, he is not necessarily looking for a referral for counseling, but rather just wanted to speak w/someone in the hospital while here. SW explained pt can speak w/this SW. Pt then went on to speak w/SW about his new diagnosis, history of depression, alcohol abuse, family. Pt states has supportive family, supportive of 11 years, 8 children who are also a support to him. Pt states has been diagnosed w/depression in the past, and has been in counseling, AA for many years. Pt takes Lexapro. Pt states he has thought about checking out before, but states he has no active suicide plan, and is not feeling suicidal at present. Pt has been sober for 37 years, states doesn't drink or do drugs now. Pt states he also struggles w/insomnia and sleep apnea. Pt explained has been having seizures for 10 years and this is the first time he has been diagnosed. Pt reflected on the fact that nobody had ever suggested to him that seizures were a possibility. Support given. Pt spoke about having issues with memory and feeling foggy for a long time, and worried that he had Alzheimer's. He states that the doctor told him it's all due to the seizures. Pt states that he has been doing things the same way for 10 years, and now is going to need to change how he does things. He states that this is going to be difficult. SW offered support. SW spoke w/pt too about now knowing the diagnosis and being on medication, and if pt thinks that this could actually improve his quality of life. Pt acknowledges that this may be true. Pt explained he just wanted to talk through things with someone and appreciates SW speaking w/him. Pt thanked SW for coming in and speaking w/him. SW remains available for any additional support to pt. MIREYA Esparza
--- NOTE | 2020-09-10 15:41 | CHAPLAIN ---
Type of Pastoral Visit _x__ Initial Visit ___ Follow-up Visit ___ On-call Visit ___ General Patient Visit ___ Spiritual Assessment ___ Family Conference ___ Bereavement ___ Rapid Response ___ Code Blue ___ Other (describe below) Pastoral Care Referral From _x__ Patient ___ Family ___ Nurse ___ Physician ___ Management Professional ___ Production Material Coordinator ___ Other (describe below) Sacrament/Intervention _x__ Active listening ___ Anointing ___ Hinduism ___ Bereavement ___ Communion _x__ Nasreen exploration ___ _x__ Life review _x__ Prayer ___ Reconciliation ___ Sacrament of Sick _x__ Supportive presence ___ Wedding ___ Other (describe below) Pastoral Comments patient admits that he will be facing some changes in life due to this recent diagnosis; pt also grateful to have a name to his condition and has been wondering what he has had for years; pt identifies himself as a believer with strong nasreen that will see him through this; pt admits that he is processing what this all means for him; pt has good family support; pt welcomes the visit and prayers.
== END 2020-09-10 17:00 | disposition home or self-care (01) | DRG 101 ==
LOC: ED 16:05 → PCU 16:52
PROVIDERS: Physician Assistant; Emergency Provider Emergency Medicine; PCP Internal Medicine; Visit Provider Family Medicine
DX: G40.909 Epilepsy, unspecified, not intractable, without status epilepticus (principal); I10 Essential (primary) hypertension; R29.703 NIHSS score 3; M19.90 Unspecified osteoarthritis, unspecified site; M79.7 Fibromyalgia; G47.33 Obstructive sleep apnea (adult) (pediatric); G89.4 Chronic pain syndrome; M54.9 Dorsalgia, unspecified; Z87.820 Personal history of traumatic brain injury; Z87.891 Personal history of nicotine dependence
CPT/HCPCS: 36415; 70450; 70496; 70498; 70551; 71045; 80048; 80061; 84484; 85025; 85610; 85730; 93005; 93306; 94762; 95819; 97161; 97165; 97530; 97802; 99285; J7030; Q9957; Q9967; A4216

== ENCOUNTER 2024-08-12 16:52 | Inpatient (IN) | payer MEDICARE, SELFPAY ==
[2024-08-12] VITALS (12 sets, daily range): BP systolic 125–168; BP diastolic 62–95; PULSE 55–81; RESP 16–25; TEMP 36.8–36.9; O2SAT 96–98; BMI 38.9; BMI 38.6
--- NOTE | 2024-08-12 17:20 | EKG12_ITS ---
Test Reason : CP Blood Pressure : */* mmHG Vent. Rate : 71 BPM Atrial Rate : 71 BPM P-R Int : 204 ms QRS Dur : 116 ms QT Int : 410 ms P-R-T Axes : 28 -40 48 degrees QTcB Int : 445 ms Normal sinus rhythm Left axis deviation Incomplete left bundle branch block Minimal voltage criteria for LVH, may be normal variant ( Nader product ) Abnormal ECG Confirmed by MALLY WINN, EMELY ([id number]), supervising editor news reel JUSTIN COUGHLIN ([id number]) on 08/15/2024 5:57:27 AM Referred By: RUTH/ROSI Confirmed By: EMELY BAL MD
[2024-08-12] MEDS: Aspirin 81 MG TAB.CHEW 324 MG PO (17:25)
--- NOTE | 2024-08-12 17:43 | RAD_ITS ---
PROCEDURE: CHEST PA AND LATERAL 08/12/2024 REASON FOR EXAM: CHEST PAIN TECHNIQUE: Frontal and lateral views of the chest. COMPARISON: None available FINDINGS: The lungs appear clear. Pulmonary vascularity appears within limits. No pneumothorax or pleural effusion. Incidental note of an azygous fissure. The cardiac and mediastinal contours appear within limits. Partially imaged rotator cuff anchors right shoulder. RAD/Chest PA and Lateral IMPRESSION: No evidence of acute disease. Reading Location: [id number]
--- NOTE | 2024-08-12 17:44 | ED.VIS.CHEST ---
HPI History of Present Illness Chief Complaint: Chest Pain Informant: patient Narrative Narrative: Patient 63-year-old male with history of TBI, nonepileptic seizures and hypertension (well-controlled per patient) as well as chronic lymphedema presenting for exertional chest pain. Patient states he has had couple months of indigestion. He states it when or shortly after he eats he will get indigestion and discomfort in his chest that radiates to his bilateral arms. He describes it as a burning sensation. He will have associated nausea. He has been prescribed omeprazole by his primary care doctor with no help or relief. He tried diet changes. He states he has been popping Rolaids with no significant help. Today he was mowing the medium grass when he started having a burning chest pain and became short of breath. He had the pain rating to his arms. He went inside and rested. Took an inhaler and a Rolaids with no significant relief. This was around 4 PM. He then went back out to finish mowing when his symptoms returned. He came to the ER for further evaluation. Denies any tobacco use. Has not had any recent cardiac testing including stress testing or echocardiogram. Currently denies any pain and states he has the slightest sensation in his chest as if the hand is over his chest but not pushing hard. Reports that he has been less active this winter because of wrist issues. Notes he has a lot of arthritis. No other complaints or concerns at this time. Does not take NSAIDs because of GI intolerance. [facility] Medical History Anxiety and depression Obesity History of TIA (transient ischemic attack) Seizure disorder Lymphedema History of alcohol abuse History of wrist fracture Mild TBI (traumatic brain injury) Chronic pain GERD (gastroesophageal reflux disease) Former smoker Asthma Home Medications ?Medication ?Instructions ?Recorded ?Last Taken ?Type escitalopram oxalate 20 mg tablet 20 mg PO DAILY Depression 10/04/13 08/11/24 History furosemide 40 mg tablet 40 mg PO DAILY BP 10/04/13 08/11/24 History oxycodone-acetaminophen 5 mg-325 2 tab PO Q4H PRN PRN Severe Pain 06/07/15 08/12/24 Rx mg tablet (6-02/17) ##90 lisinopril 10 mg tablet 10 mg PO DAILY #30 tabs 09/10/20 08/11/24 Rx escitalopram oxalate 5 mg tablet 5 mg PO DAILY Depression 08/12/24 08/11/24 History losartan 100 mg tablet 100 mg PO QHS BP 08/12/24 08/11/24 History omeprazole 20 mg capsule,delayed 20 mg PO DAILY BP 08/12/24 08/11/24 History release tadalafil 10 mg tablet 10 mg PO DAILY PRN ED 08/12/24 Unknown History Allergy/AdvReac Type Severity Reaction Status Date / Time acetaminophen (From Tylenol) Allergy Vomiting Verified 08/12/24 16:54 ibuprofen Allergy Vomiting Verified 08/12/24 16:54 codeine AdvReac Nausea Verified 08/12/24 16:54 Family History Mother Heart disease Hypertension PAF (paroxysmal atrial fibrillation) Heart failure Father Heart disease Hypertension Heart failure COPD (chronic obstructive pulmonary disease) Surgical History History of carpal tunnel surgery History of shoulder surgery History of knee joint replacement Social History household members: spouse housing: house current occupational status: retired current occupational exposures/hazards: No pets and animals: Yes (bunnies) Smoking Status: Former smoker how long ago did patient quit smoking: Quit 31 yrs prior, smoked 2 ppd since teen until quit. alcohol intake: former details: Sober x 41 years as of 08/12/24 evaluation. substance use type: does not use ROS ROS ED Constitutional Constitutional ED: Denies chills, fever(s) or sweats Cardiovascular Cardiovascular: Reports as per HPI and chest pain; Denies palpitations Respiratory/Chest Respiratory/Chest: Reports dyspnea; Denies cough Gastrointestinal Gastrointestinal: Reports nausea and other Details: Reports indigestion ; Denies abdominal pain or vomiting Genitourinary Genitourinary ED: Denies dysuria Musculoskeletal Musculoskeletal: Reports arthralgias; Denies myalgias Integumentary Denies rash Neurologic Neurologic: Denies paresthesias or weakness Psychiatric Psychiatric: Reports anxiety Hematologic/Lymphatic Hematologic/Lymphatic: Denies easy bleeding or easy bruising EXAM Physical Exam Const Vital Signs: 08/12/24 16:54 08/12/24 17:03 08/12/24 17:26 Temperature 98.4 F Temperature Source Oral Pulse Rate 81 Respiratory Rate 18 Respiratory Effort Normal Blood Pressure 164/95 H Blood Pressure Mean 118 Pulse Ox 96 Oxygen Delivery Method Room Air Room Air 08/12/24 17:53 08/12/24 18:00 08/12/24 19:54 Temperature Temperature Source Pulse Rate 62 62 59 L Respiratory Rate 18 17 25 H Respiratory Effort Blood Pressure 148/82 H 125/62 H Blood Pressure Mean 104 83 Pulse Ox 97 96 Oxygen Delivery Method Room Air Room Air 08/12/24 20:00 08/12/24 20:00 08/12/24 20:15 Temperature Temperature Source Pulse Rate 55 L 56 L 57 L Respiratory Rate 18 18 22 H Respiratory Effort Blood Pressure 145/76 H 145/76 H 127/67 H Blood Pressure Mean 99 96 82 Pulse Ox 98 Oxygen Delivery Method Room Air Positive well nourished and well developed General Appearance ED: well developed and NAD HEENT Reports moist mucous membranes Eyes PERRL Neck no JVD Chest Wall inspection of chest normal and palpation of chest normal Resp normal respiratory effort and clear to auscultation bilaterally Cardio regular rate and regular rhythm Peripheral Pulses: radial pulses present and dorsalis pedis pulses present GI normal to inspection, nondistended, normoactive bowel sounds, soft to palpation and non-tender GI Narrative: Negative Espitia sign. Extremity normal to inspection Extremity Narrative: Chronic appearing lymphedema Neuro oriented x3 Sensorium / Orientation: awake and alert Motor Exam: Negative for general weakness Psych mental status grossly normal Skin no rashes or lesions noted and no wounds Heart Score History: Highly Suspicious ECG: Normal Age: >/= 65 years Risk Factors: 1 or 2 Risk Factors Troponin: >1 - <3 Normal Limit Score: 6 MDM MDM MDM Narrative Medical decision making narrative: Patient is evaluated for exertional chest pain and shortness of breath that started today. He is currently asymptomatic. EKG shows new incomplete left bundle branch block but his most recent EKG was from a couple years ago. His history of present illness is highly concerning for exertional angina. It is compounded by the fact that he has also been dealing with 3 months of indigestion symptoms. Is not clear if he has some type of GERD or esophagitis/peptic ulcer disease or this is actually been referred cardiac symptoms. High sensitive troponin elevated at 32 and on repeat 35. Case discussed with cardiology, Dr. Younger and patient be placed on weight-based therapeutic Lovenox and brought in for further cardiac evaluation and likely cardiac catheterization. Patient is agreeable with this. His workup is otherwise normal. He is also given dose of simethicone and Protonix in case there is GI factor as well. Patient and are agreeable with this plan of care. Patient remains hemodynamically stable in the emergency room. Lab Data Attestation: I reviewed the patient's lab results. Labs: Laboratory Results - last 24 hr 08/12/24 08/12/24 17:04 18:44 WBC 8.0 RBC 4.52 L Hgb 14.4 Hct 41.5 MCV 91.8 MCH 31.9 MCHC 34.7 RDW Std Deviation 43.2 RDW Coeff of Santana 13.0 Plt Count 271 MPV 9.6 Immature Gran % (Auto) 0.100 Neut % (Auto) 59.6 Lymph % (Auto) 22.7 [place] % (Auto) 15.3 H Eos % (Auto) 1.9 Baso % (Auto) 0.4 Absolute Neuts (auto) 4.8 Absolute Lymphs (auto) 1.81 Nucleated RBC % 0 Sodium 138 Potassium 4.2 Chloride 103 Carbon Dioxide 22.6 Anion Gap 13 BUN 22 H Creatinine 0.99 Estim Creat Clear Calc 100.78 Est GFR (MDRD) Non-Af 85 BUN/Creatinine Ratio 22.6 H Glucose 121 H Calcium 9.6 Troponin T High Sens 32 H Troponin T Hi Sens 2 Hr 35 H NT pro BNP II 64 Radiography Chest X-Ray - ED: 2 View, Read by ED Physician, Read by Radiologist and No Acute Disease Diagnostic Testing: Clinical Impression(s) from Imaging Studies Chest X-Ray 08/12/24 17:43 IMPRESSION: No evidence of acute disease. Reading Location: [id number] Rhythm Strip Rhythm Strip: Sinus Rhythm Rate: 71 Ectopy: None EKG Initial EKG: Attestation: I personally reviewed and interpreted this EKG as follows: Interpretation: Sinus Rhythm Comments: Normal sinus rhythm rate of 71 bpm Left axis deviation Incomplete left bundle branch block Normal descriptor for LVH Normal intervals Normal ST segments When compared to prior EKG on 09/08/2020 patient now meets voltage anterior for LVH and has an incomplete left bundle branch block Management Discussion w/another healthcare provider: Hospitalist and Supply Chain Specialist Discharge Plan Dx/Rx/DC Orders Clinical Impression: Hypertension, ACS (acute coronary syndrome) Disposition Disposition: Acute Care Hospital [facility] Discharge Date/Time: 08/12/24 21:41
[2024-08-12 18:03] LABS: Absolute Lymphocyte Count 1.81 X10^3/uL (0.83-4.51); Absolute Neutrophil Count 4.8 X10^3/uL (2.0-7.7); Basophil# 0.03 X10^3/uL; Basophil% 0.4 % (0-1); Eosinophil# 0.15 X10^3/uL; Eosinophils% 1.9 % (0-5); Hematocrit 41.5 % (40-54); Hemoglobin 14.4 g/dL (13.0-16.5); Lymphocyte # 1.81 X10^3/ul (0.83-4.51); Lymphocyte % 22.7 % (19-41); Mean Corp Hgb Conc 34.7 g/dL (32-36); Mean Corpuscular Hgb 31.9 pg (27.0-32.0); Mean Corpuscular Volume 91.8 fL (80-94); Mean Platelet Vol. 9.6 fl (6.2-12.0); Monocyte# 1.22 X10^3/uL; Monocyte% 15.3 % (0-10); NRBC Flagged by Analyzer 0 % (0-5); Neutrophil # 4.77 X10^3/uL (2.7-7.7); Neutrophil % 59.6 % (47-70); Platelet Count 271 K/mm3 (150-450); RBC Distribution Width SD 43.2 fl (35.1-43.9); Red Blood Count 4.52 M/mm3 (4.6-6.2)
[2024-08-12 18:27] LABS: Anion Gap 13 (5-15); BUN 22 mg/dL (4-19); BUN/Creat Ratio 22.6 RATIO (10-20); Calcium,Total 9.6 mg/dL (7.6-11.0); Carbon Dioxide 22.6 mmol/L (21.0-32.0); Chloride 103 mmol/L (98-108); Creatinine, Serum 0.99 mg/dL (0.70-1.20); EST Glomerular Filtration Rate 85 (>60); Estimated Creatinine Clearance 100.78 ml/min (50-250); Glucose 121 mg/dL (70-99); Potassium 4.2 mmol/L (3.3-5.1); Pro- Brain NATRIURETIC PEPTIDE 64 pg/mL (<=900); Sodium Level 138 mmol/L (133-145); Troponin T High Sensitivity 32 ng/L (<=22)
[2024-08-12 19:22] LABS: Troponin T High Sens 2 HR 35 ng/L (<=22)
--- NOTE | 2024-08-12 20:26 | HP.PCM.HOS_ITS ---
HPI - General General Date of Admission: 08/12/24 Date of Service: 08/12/24 Chief Complaint: Chest pain. HPI Narrative The patient is a 63 y/o M w/ PMHx: Hx TIA, Former EtOH abuse (sober x 41 years), Anxiety and Depression, Hx Mild TBI, Former tobacco use, Asthma/COPD, GERD, Chronic pain syndrome, Anxiety and Depression, Obesity, CKD stage II per GFR trending, Chronic lymphedema who presents to [facility] ED on 08/12/24 with history of several months of intermittent indigestion/dyspepsia with associated discomfort in his chest starting initially in the midsternal region with radiation to bilateral upper extremities with a burning/concurrent stabbing type sensation with nausea without emesis with initiation of omeprazole and significant usage of Rolaids outpatient without marked improvement with on day of presentation noted activity, mowing his grass when he started having again the burning sensation now with associated dyspnea and pain to both his arms prompting him to go inside and rest, administer Rolaids and use inhaler with no marked relief at approximately 4 PM and when he attempted to be active again he had recurrent worsening discomfort prompting ED evaluation to be cautious. Patient notes that when his chest discomfort is at its worst it is 10 out of 10 in severity. In the ED upon evaluation he notes pain is currently abated. Workup in the ED included T98.4, heart rate 81, BP 164/95, respiratory rate 18, 96% on room air, most recent repeat vitals heart rate 55, BP 145/76, respiratory rate 18, 98% room air, CBC with WC 8.0, hemoglobin 14.4, platelet 271 without marked shift, BMP with BUN/: 22/0.99, GFR 85, glucose 121, troponin initial 32 with repeat delta 35, pro BNP 64, chest x-ray with no acute cardiopulmonary findings, EKG with sinus rhythm with incomplete left bundle branch block. In the ED patient missed her full-strength aspirin therapy, therapeutic Lovenox, Protonix bolus and simethicone 80 mg p.o. x 1. ED discussed case with demurrage clerk Dr. Younger given concern for ACS and he requested that patient be administered full-strength aspirin, therapeutic Lovenox with plan for likely cardiac catheterization on Thursday. [facility] Medical History Anxiety and depression Obesity History of TIA (transient ischemic attack) Seizure disorder Lymphedema History of alcohol abuse History of wrist fracture Mild TBI (traumatic brain injury) Chronic pain GERD (gastroesophageal reflux disease) Former smoker Asthma Home Medications ?Medication ?Instructions ?Recorded ?Last Taken ?Type escitalopram oxalate 20 mg tablet 20 mg PO DAILY 10/04 Unknown History furosemide 40 mg tablet 40 mg PO DAILY 10/04/13 Unkn own History oxycodone-acetaminophen 5 mg-325 2 tab PO Q4H PRN PRN Severe Pain 06/07/15 Unknown Rx mg tablet () ##90 lisinopril 10 mg tablet 10 mg PO DAILY #30 tabs 07/29 Unknown Rx escitalopram oxalate 5 mg tablet 5 mg PO DAILY 5 Unknown History losartan 100 mg tablet 100 mg PO QHS 08/12/24 Unkno wn History omeprazole 20 mg capsule,delayed 20 mg PO DAILY Unknown History release tadalafil 10 mg tablet 10 mg PO DAILY PRN ED Unknown History Allergy/AdvReac Type Severity Reaction Status Date / Time acetaminophen (From Tylenol) Allergy Vomiting Verified 08/12/24 16:54 ibuprofen Allergy Vomiting Verified 08/12/24 16:54 codeine AdvReac Nausea Verified 08/12/24 16:54 Family History (Updated 08/12/24 @ 21:[address] Cierra Shpeard MD) Mother Heart disease Hypertension PAF (paroxysmal atrial fibrillation) Heart failure Father Heart disease Hypertension Heart failure COPD (chronic obstructive pulmonary disease) Surgical History History of carpal tunnel surgery History of shoulder surgery History of knee joint replacement Social History (Updated 08/12/24 @ 21:[address] Cierra Shepard MD) household members: spouse housing: house current occupational status: retired current occupational exposures/hazards: No pets and animals: Yes (bunnies) Smoking Status: Former smoker how long ago did patient quit smoking: Quit 31 yrs prior, smoked 2 ppd since teen until quit. alcohol intake: former details: Sober x 41 years as of 08/12/24 evaluation. substance use type: does not use ROS ROS Narrative Admission Review of Systems: CONSTITUTIONAL: No weight loss, fever, chills, + weakness or fatigue. HEENT: Eyes: No visual loss, blurred vision, double vision or yellow sclerae. Ears, Nose, Throat: No hearing loss, sneezing, congestion, runny nose or sore throat. SKIN: No rash or itching, lesions, wounds. CARDIOVASCULAR: + Chest pain, chronic BL LE lymphedema. No palpitations, orthopnea, syncopal events. RESPIRATORY: + Dyspnea/exertional with chest pain. No cough or sputum, wheezing, hemoptysis. GASTROINTESTINAL: + Intermittent bloating/dyspepsia. No anorexia, nausea, vomiting or diarrhea, abdominal pain, melena, BRBPR. GENITOURINARY: No dysuria, frequency, urgency or retention. NEUROLOGICAL: No headache, dizziness, syncope, paralysis, ataxia, numbness or tingling in the extremities, focal weakness, change in bowel or bladder control, seizure. MUSCULOSKELETAL: + muscle, back pain, joint pain or stiffness. HEMATOLOGIC: No anemia, bleeding or bruising. LYMPHATICS: No enlarged nodes. No history of splenectomy. PSYCHIATRIC: + History anxiety and depression. ENDOCRINOLOGIC: No reports of sweating, cold or heat intolerance. No polyuria or polydipsia. ALLERGIES: + History asthma, allergic rhinitis. Vital Signs Vital Signs Vital Signs: 08/12/24 16:54 08/12/24 17:03 08/12/24 17:26 Temperature 98.4 F Temperature Source Oral Pulse Rate 81 Respiratory Rate 18 Respiratory Effort Normal Blood Pressure 164/95 H Blood Pressure Mean 118 Pulse Ox 96 Oxygen Delivery Method Room Air Room Air 08/12/24 17:53 08/12/24 18:00 08/12/24 19:54 Temperature Temperature Source Pulse Rate 62 62 59 L Respiratory Rate 18 17 25 H Respiratory Effort Blood Pressure 148/82 H 125/62 H Blood Pressure Mean 104 83 Pulse Ox 97 96 Oxygen Delivery Method Room Air Room Air 08/12/24 20:00 Temperature Temperature Source Pulse Rate 55 L Respiratory Rate 18 Respiratory Effort Blood Pressure 145/76 H Blood Pressure Mean 99 Pulse Ox 98 Oxygen Delivery Method Room Air Weight Weight: 278 lb 14.156 oz Body Mass Index (BMI) 38.9 Physical Exam Narrative Physical Examination: General: Awake, alert, oriented x 3 and cooperative, seated upright in the ED bed in no apparent distress, denies any current chest discomfort. Skin: Normal color, normal turgor, no icterus, no cyanosis. HEENT: AT/NC, EOMI, PERRLA, MMM, no carotid bruits or JVD noted; however thickened neck makes evaluation difficult. Lungs: Mildly diminished, greater bases, appropriate effort, no rales, ronchi or wheezing. Heart: Mildly bradycardic with regular rhythm; no gallop, rub audible. Abdomen: Soft, obese, NTTP, tympanitic, moderately distended, mildly hyperactive BS, no appreciated HSM. Extremities: No cyanosis, no clubbing, chronic bilateral lower extremity lymphedema. Neurological: Patient awake, alert, oriented as noted, cognitive function intact; pupils equally reactive to light and accommodation, cranial nerves gross normal, moving all 4 extremities, no focal deficits, strength mildly to moderately globally creased given acute presentation, currently improved is no chest discomfort currently. Psychiatric: Affect appears fatigued otherwise normal, no acute evidence of depressive or anxiety feelings but does have underlying history. Results Lab / Micro Data 08/12/24 17:04 08/12/24 17:04 Labs: Laboratory Results - last 24 hr 08/12/24 17:04: WBC 8.0, RBC 4.52 L, Hgb 14.4, Hct 41.5, MCV 91.8, MCH 31.9, MCHC 34.7, RDW Std Deviation 43.2, RDW Coeff of Santana 13.0, Plt Count 271, MPV 9.6, Immature Gran % (Auto) 0.100, Neut % (Auto) 59.6, Lymph % (Auto) 22.7, [place] % (Auto) 15.3 H, Eos % (Auto) 1.9, Baso % (Auto) 0.4, Absolute Neuts (auto) 4.8, Absolute Lymphs (auto) 1.81, Nucleated RBC % 0, Sodium 138, Potassium 4.2, Chloride 103, Carbon Dioxide 22.6, Anion Gap 13, BUN 22 H, Creatinine 0.99, Estim Creat Clear Calc 100.78, Est GFR (MDRD) Non-Af 85, BUN/Creatinine Ratio 22.6 H, Glucose 121 H, Calcium 9.6, Troponin T High Sens 32 H, NT pro BNP II 64 08/12/24 18:44: Troponin T Hi Sens 2 Hr 35 H Rhythm Strip Rhythm Strip: Sinus Rhythm Rate: 71 Ectopy: None Imaging Radiology Impression Chest X-Ray 08/12/24 17:43 IMPRESSION: No evidence of acute disease. Reading Location: [id number] Assessment & Plan Assessment/Plan (1) ACS (acute coronary syndrome): PLAN: Plan The patient is a 63 y/o M w/ PMHx: Hx TIA, Former EtOH abuse (sober x 41 years), Anxiety and Depression, Hx Mild TBI, Former tobacco use, Asthma/COPD, GERD, Chronic pain syndrome, Anxiety and Depression, Obesity, CKD stage II per GFR trending, Chronic lymphedema who presents to [facility] ED on 08/12/24 with history of several months of intermittent indigestion/dyspepsia with associated discomfort in his chest with radiation to bilateral upper extremities with a burning/concurrent stabbing type sensation with nausea without emesis with initiation of omeprazole and significant usage of Rolaids outpatient without marked improvement with on day of presentation noted activity, mowing his grass when he started having again the burning sensation now with associated dyspnea and pain to both his arms prompting him to go inside and rest, administer Rolaids and use inhaler with no marked relief at approximately 4 PM and when he attempted to be active again he had recurrent worsening discomfort prompting ED evaluation to be cautious. #1. Chest Pain, exertional, concerning for ACS with indeterminate cardiac enzymes of unclear significance: EKG in ED SR with incomplete L BBB, CXR w/ no acute cardiopulmonary, initial trop initial 32 with repeat delta 35. Will admit to PCU, place on a monitored bed to assure no acute myocardial infarction with serial cardiac enzymes and EKGs. Given symptoms there is notable concern especially given underlying histories with plan for continued cardiology evaluation and likely cardiac catheterization Thursday. Will maintain on therapeutic Lovenox in the interim in addition to aspirin therapy. Given no allergy noted will add statin therapy, FLP in AM. Patient with chronic bradycardia thus will defer immediate beta-darci therapy and defer to cardiology discretion. Will continue ARB. Echocardiogram requested in the interim. ASA, NG. #2. Dyspepsia, GERD, worsening: Administered Protonix bolus in the ED. Patient with worsening symptoms, potentially related with #1, to be cautious we will maintain on PPI with as needed Mylanta. Given very mild hyperglycemia will obtain hemoglobin A1c to be cautious in case unknown underlying diabetes and component of gastroparesis. Certainly could consider trying Reglan if needed. #3. Hx TIA: Noted TIA in 2020 with expressive aphasia at that time spontaneously resolving, will continue aspirin, not on statin previously, adding given presentation as noted, FLP in AM. #4. Chronic Kidney Disease Stage II per GFR trend: Admission BUN/Cr 22/0.99, GFR 85, baseline renal function primarily 0.9-1.1, repeat BMP in AM. #5. Anxiety and depression: Will continue patient home escitalopram regimen. #6. Hypertension: Continue home regimen including Lasix, losartan, PRN hydralazine. Clarifying but for some reason patient is also listed on lisinopril, clinically should not be on an JUAN MANUEL inhibitor and ARB, will temporarily until able to clarify discontinue lisinopril. #7. Hyperlipidemia: Per current was not at regimen, adding moderate dose given presentation #1, FLP in AM. #8. Nonepileptic seizures: Controlled, but currently not on chronic antiepileptic regimen, encourage continued outpatient follow-up with neurology as previously arranged. #9. Obesity: Weight loss and lifestyle changes encouraged. #10. Chronic lymphedema: Will place snug Juan Manuel wraps with lower extremity elevation as able to tolerate #11. Former alcohol abuse: Encourage continued sobriety, notes sober x 41 years. #12. Former tobacco use: Encouraged continued tobacco cessation. #13. Chronic COPD/asthma: Currently not on any regimen, PRN albuterol, HOB, IS parameters. #14. DVT prophylaxis: Therapeutic Lovenox. #15. CODE status: Patient does not have healthcare power of application integration specialist or living will in place but he notes if his medical decisions needed to be made his would be his decision maker. Discussed CODE status at length including difference between FULL code, DNR-CCA and DNR-CC status. Following discussions about the differences in these status, requested Full Code status. Charges/Coding Visit Charges Inpatient E&M: 82014 Init Hosp L3
--- NOTE | 2024-08-12 20:33 | EKG12_ITS ---
Test Reason : CP Blood Pressure : */* mmHG Vent. Rate : 59 BPM Atrial Rate : 59 BPM P-R Int : 224 ms QRS Dur : 116 ms QT Int : 428 ms P-R-T Axes : 3 -41 11 degrees QTcB Int : 423 ms Sinus bradycardia with 1st degree A-V block Left axis deviation Minimal voltage criteria for LVH, may be normal variant ( Nader product ) Inferior infarct , age undetermined Possible Anterior infarct , age undetermined Abnormal ECG When compared with ECG of 12-Aug-2024 16:57, MANUAL COMPARISON REQUIRED DATA IS UNCONFIRMED Confirmed by WARREN WINN, ANGELICA ([id number]), field map editor BHAVANA AGUIRRE ([id number]) on 08/15/2024 9:19:13 AM Referred By: BB Confirmed By: ANGELICA KELLEY MD
[2024-08-12] MEDS: SimETHICONE 80 MG Chewable Tablet PO (20:36)
[2024-08-12] MEDS: Enoxaparin 150 MG/ML Syringe 130 MG SC (20:36)
[2024-08-12] MEDS: Pantoprazole Sodium 40 MG in 0.9% Normal Saline (100mL MB+) 100 ML 330 MG IV (20:36)
--- NOTE | 2024-08-12 20:58 | CASEMGMT ---
Care Management Face to Face with patient for initial transition planning/care coordination assessment in the ED.? This rewriter introduced self and role at [facility]. Patient alert and oriented. Patient willing to participate in assessment and is able to answer all questions appropriately.? Care providers, pharmacy, and demographics verified. Admitting Diagnosis: Chest pain Other diagnosis history: mild TBI, chronic pain, GERD, asthma PCP: Jigar Specialists: none Preferred Pharmacy: [facility] Insurance: [employer] Prescription Benefit: yes Living Will/HPOA: ?would like to complete while admitted LNOK: Living Arrangements: Lives with in one story home, 1 step to enter. Independent with ADLs and IADLs Transportation: patient drives DME: cane, walker, wheelchair HHC: none SNF/Rehab:none Community Resources: none Behavioral Health History: anxiety and depression Patient goals: Patient wishes to discharge home, denies need for home health care at this time. Patient denies any further needs or concerns at this time. Disposition Plan: admission to acute; RN CM/SW to follow for discharge planning needs that may arise. Anika Vazquez, COLLECTIONS REP, SKATESMAN
[2024-08-12 21:05] LABS: Troponin T High Sens 4 HR 32 ng/L (<=22)
[2024-08-12] MEDS: Atorvastatin Calcium 40 MG Tablet PO (22:34)
[2024-08-12] MEDS: Losartan Potassium 100 MG Tablet PO (22:34)
[2024-08-12] MEDS: Pantoprazole Sodium 40 MG Tablet PO (22:35)
[2024-08-12] MEDS: Escitalopram Oxalate 10 MG Tablet 5 MG PO (22:35)
[2024-08-12] MEDS: Escitalopram Oxalate 20 MG Tablet PO (22:38)
[2024-08-12] MEDS: 0.9% Saline Lock 10 ML Syringe IV (22:38)
[2024-08-12] MEDS: Senna/Docusate Sodium 1 Tablet 2 TABLET PO (22:43)
[2024-08-13 03:45] VITALS: BMI 38.6
[2024-08-13 04:10] VITALS: BP 121/58; PULSE 58; RESP 14; TEMP 36.7; O2SAT 98
[2024-08-13] MEDS: Enoxaparin 150 MG/ML Syringe 130 MG SC ×2 (05:48→15:51)
[2024-08-13 07:11] LABS: Basophil# 0.04 X10^3/uL; Basophil% 0.6 % (0-1); Eosinophil# 0.17 X10^3/uL; Eosinophils% 2.4 % (0-5); Hematocrit 40.8 % (40-54); Hemoglobin 13.9 g/dL (13.0-16.5); Lymphocyte % 25.3 % (19-41); Mean Corp Hgb Conc 34.1 g/dL (32-36); Mean Corpuscular Hgb 31.6 pg (27.0-32.0); Mean Corpuscular Volume 92.7 fL (80-94); Mean Platelet Vol. 9.3 fl (6.2-12.0); Monocyte# 1.12 X10^3/uL; Monocyte% 15.8 % (0-10); NRBC Flagged by Analyzer 0 % (0-5); Neutrophil # 3.96 X10^3/uL (2.7-7.7); Neutrophil % 55.6 % (47-70); Platelet Count 253 K/mm3 (150-450); RBC Distribution Width CV 12.8 % (11.6-14.6); RBC Distribution Width SD 43.5 fl (35.1-43.9); White Blood Count 7.1 K/mm3 (4.4-11.0)
[2024-08-13 07:35] VITALS: O2SAT 99
[2024-08-13 07:37] LABS: Hemoglobin A1c 5.5 % (<=5.6)
[2024-08-13 07:38] LABS: ALB/GLOB Ratio 1.4 RATIO (0.9-2.4); AST(SGOT) 11 U/L (<=37); Alanine Aminotransfer ALT/SGPT 16 U/L (<=46); Alkaline Phosphatase 46 U/L (40-129); Anion Gap 10 (5-15); BUN 19 mg/dL (4-19); BUN/Creat Ratio 22.4 RATIO (10-20); Calcium,Total 9.2 mg/dL (7.6-11.0); Carbon Dioxide 25.6 mmol/L (21.0-32.0); Chloride 103 mmol/L (98-108); Cholesterol 205 mg/dL (<=200); Creatinine, Serum 0.83 mg/dL (0.70-1.20); EST Glomerular Filtration Rate 97 (>60); Estimated Creatinine Clearance 119.75 ml/min (50-250); Globulin 2.9 g/dL (2.2-4.2); Glucose 98 mg/dL (70-99); High Density Lipoprotein 53 mg/dL; Low Density Lipoprotein Calc. 139 mg/dL; Potassium 4.8 mmol/L (3.3-5.1); Protein, Total 6.9 g/dL (5.9-8.4); Sodium Level 139 mmol/L (133-145); Total Bilirubin 0.27 mg/dL (0.00-1.30); Triglycerides 67 mg/dL; Very Low Density Lipoprotein 13 mg/dL (5-40)
--- NOTE | 2024-08-13 07:53 | PCM.PN.HOSP ---
Reason for Visit Reason for Visit: Diagnoses Acute ischemic heart disease, unspecified (08/12/24) Objective Data Objective Data Vital Signs: Vital Signs Temp Pulse Resp BP Pulse Ox O2 Del Method 98.0 F 58 L 14 121/58 H 98 Room Air 08/13/24 04:10 08/13/24 04:10 08/13/24 04:10 08/13/24 04:10 08/13/24 04:10 08/13/24 04:12 Oxygen Delivery Method Room Air Weight: 276 lb 14.409 oz Body Mass Index (BMI) 38.6 Intake & Output: Intake and Output for Last 24 Hours 08/11/24 08/12/24 08/13/24 23:59 23:59 23:59 Intake Total 310 / 310 0 / 0 Balance 310 / 310 0 / 0 Lab / Micro Data 08/13/24 06:55 08/13/24 06:55 Labs: Laboratory Results - last 24 hr 08/12/24 17:04: WBC 8.0, RBC 4.52 L, Hgb 14.4, Hct 41.5, MCV 91.8, MCH 31.9, MCHC 34.7, RDW Std Deviation 43.2, RDW Coeff of Santana 13.0, Plt Count 271, MPV 9.6, Immature Gran % (Auto) 0.100, Neut % (Auto) 59.6, Lymph % (Auto) 22.7, [place] % (Auto) 15.3 H, Eos % (Auto) 1.9, Baso % (Auto) 0.4, Absolute Neuts (auto) 4.8, Absolute Lymphs (auto) 1.81, Nucleated RBC % 0, Sodium 138, Potassium 4.2, Chloride 103, Carbon Dioxide 22.6, Anion Gap 13, BUN 22 H, Creatinine 0.99, Estim Creat Clear Calc 100.78, Est GFR (MDRD) Non-Af 85, BUN/Creatinine Ratio 22.6 H, Glucose 121 H, Calcium 9.6, Troponin T High Sens 32 H, NT pro BNP II 64 08/12/24 18:44: Troponin T Hi Sens 2 Hr 35 H 08/12/24 20:40: Magnesium 2.0, Troponin T Hi Sens 4Hr 32 H 08/13/24 06:55: WBC 7.1, RBC 4.40 L, Hgb 13.9, Hct 40.8, MCV 92.7, MCH 31.6, MCHC 34.1, RDW Std Deviation 43.5, RDW Coeff of Santana 12.8, Plt Count 253, MPV 9.3, Immature Gran % (Auto) 0.300, Neut % (Auto) 55.6, Lymph % (Auto) 25.3, [place] % (Auto) 15.8 H, Eos % (Auto) 2.4, Baso % (Auto) 0.6, Absolute Neuts (auto) 4.0, Absolute Lymphs (auto) 1.80, Nucleated RBC % 0, Sodium 139, Potassium 4.8, Chloride 103, Carbon Dioxide 25.6, Anion Gap 10, BUN 19, Creatinine 0.83, Estim Creat Clear Calc 119.75, Est GFR (MDRD) Non-Af 97, BUN/Creatinine Ratio 22.4 H, Glucose 98, Hemoglobin A1c 5.5 L, Calcium 9.2, Total Bilirubin 0.27, AST 11, ALT 16, Alkaline Phosphatase 46, Total Protein 6.9, Albumin 4.0, Globulin 2.9, Albumin/Globulin Ratio 1.4, Triglycerides 67, Cholesterol 205 H, LDL Cholesterol, Calc 139, VLDL Cholesterol 13, HDL Cholesterol 53, Cholesterol/HDL Ratio 3.90 Radiography Diagnostic Testing: Radiology Impression Chest X-Ray 08/12/24 17:43 IMPRESSION: No evidence of acute disease. Reading Location: [facility] Rhythm Strip Rhythm Strip: Sinus Rhythm Rate: 71 Ectopy: None Physical Exam Narrative Seen and examined. Patient was admitted with burning kind of chest pain, shortness of breath while mowing the grass. Currently he is symptom-free Physical exam General: Alert, Oriented x3, Cooperative. Obesity grade 338.6 kg/m? HEENT: Atraumatic, PERRLA, EOMI, Normocephalic Oral: Deep pharyngeal structures could not be visualized Neck: Supple, No JVD, Negative Carotid Bruits Chest wall/Lungs: Air entry diminished in bilateral lung bases. No crepitation/rhonchi Cardiovascular: Sinus rhythm, Normal S1, Normal S2, no murmur gallop rub Abdomen: Bowel Sounds Present, Soft, Non Tender, Non-Distended : No dysuria. No renal angle tenderness. No suprapubic tenderness. Extremities: Chronic lower extremity lymphedema wearing knee-high stockings , Capillary Refill Less than 3 Seconds Skin: No rashes, No breakdown Musculoskeletal: No Tenderness to Palpation of Joints or Extremities Neurological: Cranial nerves II-XII grossly intact, DTR 2+/4. No acute focal neurological deficit. Psych/Mental Status: Normal Affect, Appropriate. Assessment & Plan Assessment/Plan (1) ACS (acute coronary syndrome): PLAN: Plan The patient is a 63 y/o M came to ED with exertional chest discomfort with history of chronic lymphedema, indigestion for last couple months. On the day of admission patient had burning chest pain and became short of breath while mowing grass. Quit to smoke no recent cardiac testing 1. Unstable angina/ACS: Patient is being admitted in PCU. Twelve-lead EKG reviewed and shows sinus bradycardia, first-degree AV block, LAD, LVH, possible inferior [place]. 2D echo shows EF 60%, no RWMA. Normal RV size. No significant valvular. Troponins 32, 35 and 32 flat indeterminant. With the convincing chest pain characteristic of unstable angina, patient agreed for cardiac cath on Thursday. On baby aspirin, therapeutic dose of enoxaparin, losartan and atorvastatin. #2. Dyspepsia, GERD, worsening: On PPI. Provide will need EGD as an outpatient #3. TIA in 2020 with expressive aphasia. Resolved #4. Chronic Kidney Disease Stage II : Admission BUN/Cr 22/0.99, GFR 85, baseline renal function primarily 0.9-1.1, repeat BUN/creatinine normal range 19/0.83 #5. Anxiety and depression: continue patient home escitalopram regimen. #6. Hypertension: Continue home regimen including Lasix, losartan. #7. Hyperlipidemia: Lipid profile LDL 139, TC 205, HDL 53. LDL elevated. #8. 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 Obesity: Weight loss and lifestyle changes encouraged. BMI 38.6 kg #10. Chronic lymphedema: Juan Manuel wraps with lower extremity elevation as able to tolerate #11. Former alcohol abuse: Encourage continued sobriety, notes sober x 41 years. #12. Former tobacco use: Patient is smoked 30 pack years of cigarettes. Quit 31 years ago #13. Chronic COPD/asthma: Currently not on any regimen, PRN albuterol, HOB, IS parameters. #14. DVT prophylaxis: Therapeutic Lovenox. #15. CODE status: Patient does not have healthcare power of tail sawyer or living will in place but he notes if his medical decisions needed to be made his would be his decision maker. Discussed CODE status at length including difference between FULL code, DNR-CCA and DNR-CC status. Following discussions about the differences in these status, requested Full Code status. Charges/Coding Visit Charges Inpatient E&M: 29486 Subs Hosp L2
[2024-08-13] MEDS: SimETHICONE 80 MG Chewable Tablet PO (08:32)
[2024-08-13] MEDS: Pantoprazole Sodium 40 MG Tablet PO ×2 (08:32→21:52)
[2024-08-13] MEDS: oxyCODONE 5 MG Tablet 10 MG PO ×2 (08:33→17:19)
[2024-08-13] MEDS: Furosemide 40 MG Tablet PO (08:35)
[2024-08-13] MEDS: Aspirin E.C. 81 MG Tablet PO (08:35)
[2024-08-13 10:10] VITALS: BP 148/65; PULSE 59; RESP 16; TEMP 36.8; O2SAT 95
--- NOTE | 2024-08-13 13:17 | CASEMGMT ---
Patient was interested in completing advance directives. SW assisted patient in completing documents. Copies were made and given to patient along with originals. A copy of each was also placed in patient's chart. Camryn TORREZ
--- NOTE | 2024-08-13 15:02 | PCM.CONS.C ---
Assessment & Plan Assessment/Plan (1) ACS (acute coronary syndrome): PLAN: Chest pain appears to be due to unstable angina/non-STEMI. Agree with keeping the patient on therapeutic Lovenox. Hold Thursday morning dose in anticipation of cardiac cath. Explained the risks and benefits of cardiac cath in detail to the patient. Patient is agreeable. We will plan on cardiac cath on Thursday. Agree with aspirin, statin. Patient has not been started on a beta-darci due to bradycardia. HPI Consult Data Date of Consult: 08/13/24 HPI Narrative Reason for Consultation: Chest pain, elevated troponin HPI Narrative: ERIK YUSUF, is a 63 M who presents with exertional chest pain that is in the epigastric to lower retrosternal region. It feels like indigestion. However when patient is not exerting himself he does not have it and when he does activity he has started having it. It started about 3 months back and has been slowly getting worse. [facility] Medical History Anxiety and depression Obesity History of TIA (transient ischemic attack) Seizure disorder Lymphedema History of alcohol abuse History of wrist fracture Mild TBI (traumatic brain injury) Chronic pain GERD (gastroesophageal reflux disease) Former smoker Asthma Home Medications ?Medication ?Instructions ?Recorded ?Last Taken ?Type escitalopram oxalate 20 mg tablet 20 mg PO DAILY Depression 10/04/13 08/11/24 History furosemide 40 mg tablet 40 mg PO DAILY BP 10/04/13 08/11/24 History oxycodone-acetaminophen 5 mg-325 2 tab PO Q4H PRN PRN Severe Pain 06/07/15 08/12/24 Rx mg tablet () ##90 lisinopril 10 mg tablet 10 mg PO DAILY #30 tabs 09/10/20 08/11/24 Rx escitalopram oxalate 5 mg tablet 5 mg PO DAILY Depression 08/12/24 08/11/24 History losartan 100 mg tablet 100 mg PO QHS BP 08/12/24 08/11/24 History omeprazole 20 mg capsule,delayed 20 mg PO DAILY BP 08/12/24 08/11/24 History release tadalafil 10 mg tablet 10 mg PO DAILY PRN ED 08/12/24 Unknown History Allergy/AdvReac Type Severity Reaction Status Date / Time acetaminophen (From Tylenol) Allergy Vomiting Verified 08/12/24 16:54 ibuprofen Allergy Vomiting Verified 08/12/24 16:54 codeine AdvReac Nausea Verified 08/12/24 16:54 Family History Mother Heart disease Hypertension PAF (paroxysmal atrial fibrillation) Heart failure Father Heart disease Hypertension Heart failure COPD (chronic obstructive pulmonary disease) Surgical History History of carpal tunnel surgery History of shoulder surgery History of knee joint replacement Social History household members: spouse housing: house current occupational status: retired current occupational exposures/hazards: No pets and animals: Yes (bunnies) Smoking Status: Former smoker how long ago did patient quit smoking: Quit 31 yrs prior, smoked 2 ppd since teen until quit. alcohol intake: former details: Sober x 41 years as of 08/12/24 evaluation. substance use type: does not use Physical Exam Const alert and oriented x3 HEENT normocephalic Resp normal respiratory effort Cardio regular rate Psych mental status grossly normal Risk Stratification Risk Stratification Applicable: No Charges/Coding Visit Charges Inpatient E&M: 73084 Init Hosp L2 Objective Data Vital Signs: Vital Signs Temp Pulse Resp BP Pulse Ox O2 Del Method 98.0 F 58 L 14 121/58 H 99 Room Air 08/13/24 04:10 08/13/24 04:10 08/13/24 04:10 08/13/24 04:10 08/13/24 07:35 08/13/24 07:35 Oxygen Delivery Method Room Air Weight: 276 lb 14.409 oz Body Mass Index (BMI) 38.6 Intake & Output: Intake and Output for Last 24 Hours 08/11/24 08/12/24 08/13/24 23:59 23:59 23:59 Intake Total 310 / 310 0 / 0 Balance 310 / 310 0 / 0 Lab / Micro Data 08/13/24 06:55 08/13/24 06:55 Labs: Laboratory Results - last 24 hr 08/12/24 17:04: WBC 8.0, RBC 4.52 L, Hgb 14.4, Hct 41.5, MCV 91.8, MCH 31.9, MCHC 34.7, RDW Std Deviation 43.2, RDW Coeff of Santana 13.0, Plt Count 271, MPV 9.6, Immature Gran % (Auto) 0.100, Neut % (Auto) 59.6, Lymph % (Auto) 22.7, [place] % (Auto) 15.3 H, Eos % (Auto) 1.9, Baso % (Auto) 0.4, Absolute Neuts (auto) 4.8, Absolute Lymphs (auto) 1.81, Nucleated RBC % 0, Sodium 138, Potassium 4.2, Chloride 103, Carbon Dioxide 22.6, Anion Gap 13, BUN 22 H, Creatinine 0.99, Estim Creat Clear Calc 100.78, Est GFR (MDRD) Non-Af 85, BUN/Creatinine Ratio 22.6 H, Glucose 121 H, Calcium 9.6, Troponin T High Sens 32 H, NT pro BNP II 64 08/12/24 18:44: Troponin T Hi Sens 2 Hr 35 H 08/12/24 20:40: Magnesium 2.0, Troponin T Hi Sens 4Hr 32 H 08/13/24 06:55: WBC 7.1, RBC 4.40 L, Hgb 13.9, Hct 40.8, MCV 92.7, MCH 31.6, MCHC 34.1, RDW Std Deviation 43.5, RDW Coeff of [place] 12.8, Plt Count 253, MPV 9.3, Immature Gran % (Auto) 0.300, Neut % (Auto) 55.6, Lymph % (Auto) 25.3, [place] % (Auto) 15.8 H, Eos % (Auto) 2.4, Baso % (Auto) 0.6, Absolute Neuts (auto) 4.0, Absolute Lymphs (auto) 1.80, Nucleated RBC % 0, Sodium 139, Potassium 4.8, Chloride 103, Carbon Dioxide 25.6, Anion Gap 10, BUN 19, Creatinine 0.83, Estim Creat Clear Calc 119.75, Est GFR (MDRD) Non-Af 97, BUN/Creatinine Ratio 22.4 H, Glucose 98, Hemoglobin A1c 5.5 L, Calcium 9.2, Total Bilirubin 0.27, AST 11, ALT 16, Alkaline Phosphatase 46, Total Protein 6.9, Albumin 4.0, Globulin 2.9, Albumin/Globulin Ratio 1.4, Triglycerides 67, Cholesterol 205 H, LDL Cholesterol, Calc 139, VLDL Cholesterol 13, HDL Cholesterol 53, Cholesterol/HDL Ratio 3.90 Rhythm Strip Rhythm Strip: Sinus Rhythm Rate: 71 Ectopy: None Cardiology Labs/Tests 08/12/24 17:04: WBC 8.0, RBC 4.52 L, Hgb 14.4, Hct 41.5, MCV 91.8, MCH 31.9, MCHC 34.7, Plt Count 271, MPV 9.6, Immature Gran % (Auto) 0.100, Neut % (Auto) 59.6, Lymph % (Auto) 22.7, [place] % (Auto) 15.3 H, Eos % (Auto) 1.9, Baso % (Auto) 0.4, Absolute Neuts (auto) 4.8, Nucleated RBC % 0, Sodium 138, Potassium 4.2, Chloride 103, Carbon Dioxide 22.6, Anion Gap 13, BUN 22 H, Creatinine 0.99, Est GFR (MDRD) Non-Af 85, BUN/Creatinine Ratio 22.6 H, Glucose 121 H, Calcium 9.6 08/12/24 20:40: Magnesium 2.0 08/13/24 06:55: WBC 7.1, RBC 4.40 L, Hgb 13.9, Hct 40.8, MCV 92.7, MCH 31.6, MCHC 34.1, Plt Count 253, MPV 9.3, Immature Gran % (Auto) 0.300, Neut % (Auto) 55.6, Lymph % (Auto) 25.3, [place] % (Auto) 15.8 H, Eos % (Auto) 2.4, Baso % (Auto) 0.6, Absolute Neuts (auto) 4.0, Nucleated RBC % 0, Sodium 139, Potassium 4.8, Chloride 103, Carbon Dioxide 25.6, Anion Gap 10, BUN 19, Creatinine 0.83, Est GFR (MDRD) Non-Af 97, BUN/Creatinine Ratio 22.4 H, Glucose 98, Hemoglobin A1c 5.5 L, Calcium 9.2, Total Bilirubin 0.27, Triglycerides 67, Cholesterol 205 H, VLDL Cholesterol 13, HDL Cholesterol 53, Cholesterol/HDL Ratio 3.90 Rhythm: EKG: ECHO: Stress Test: Cardiac Cath: PCI: CT Surgery: Holter monitor: EPS: PPM: CXR: Chest CT Scan: Radiography Diagnostic Testing: Radiology Impression Chest X-Ray 04/04/25 17:43 IMPRESSION: No evidence of acute disease. Reading Location: [id number] Echocardiogram 08/13/24 20:30 Interpretation Summary The estimated ejection fraction is 60 %. No evidence for diastolic dysfunction. Ordering Physician: Cierra Shepard Referring Physician: Juani Kimball M.D. Performed By: Maribel Torre RCS
[2024-08-13 16:00] VITALS: BP 109/63; PULSE 65; RESP 16; TEMP 36.4; O2SAT 96
[2024-08-13] MEDS: Senna/Docusate Sodium 1 Tablet 2 TABLET PO (17:19)
--- NOTE | 2024-08-13 20:30 | ECHOD_ITS ---
Reason For Study Reason For Study: CAD/ASHD Procedure This was a 2D Doppler, Color Flow transthoracic echocardiogram. Exam performed portable in patient room. Left Ventricle Normal LV size. The estimated ejection fraction is 60 %. No evidence for diastolic dysfunction. No regional wall motion abnormalities noted. Right Ventricle Normal RV size. Normal systolic function. Atria The left and right atria are normal. No doppler evidence for ASD. Mitral Valve There is no mitral valve stenosis. No mitral valve insufficiency. Tricuspid Valve There is no tricuspid stenosis. Unable to estimate RV systolic pressure due to insufficient tricuspid regurgitant envelope. Trivial tricuspid valve insufficiency. Aortic Valve Trisinus/trileaflet aortic valve. There is no aortic stenosis. No aortic valve insufficiency. Pulmonic Valve There is no pulmonic valvular stenosis. Trivial pulmonic valve insufficiency. Great Vessels The aortic root is not well visualized. Pericardium/Pleural No pericardial effusion. MMode/2D Measurements & Calculations LVIDd: 4.9 cm IVSd: 1.6 cm LVOT diam: 2.0 cm LVIDs: 2.9 cm LVPWd: 1.5 cm LVOT area: 3.1 cm2 FS: 41.6 % Ao root diam: 3.8 cm LAV(MOD-bp): 37.3 ml LVAd ap4: 34.3 cm2 LAV(MOD-bp) Indexed: 15.4 ml/m2 LVLd ap4: 9.6 cm LAV(MOD-sp2): 35.2 ml EDV(MOD-sp4): 106.9 ml LAV(MOD-sp4): 38.9 ml EDV(sp4-el): 104.6 ml LVAs ap4: 16.9 cm2 LVLs ap4: 7.8 cm ESV(MOD-sp4): 30.5 ml ESV(sp4-el): 31.0 ml EF(MOD-sp4): 71.5 % EF(sp4-el): 70.4 % SV(MOD-sp4): 76.4 ml SV(sp4-el): 73.6 ml LA A4 area: 15.1 cm2 SI(MOD-sp4): 31.6 ml/m2 LA dimension(2D): 4.2 cm RA A4 area: 12.3 cm2 Time Measurements MV dec time: 0.24 sec Doppler Measurements & Calculations MV E max amado: 79.0 cm/sec Lat Peak E' Amado: 11.3 cm/sec Med Peak E' Amado: 9.1 cm/sec MV A max amado: 80.5 cm/sec E/E' lat: 7.0 E/E' med: 8.6 MV E/A: 0.98 MV V2 max: 86.0 cm/sec Ao V2 max: 134.7 cm/sec MV max P.0 mmHg MV dec slope: 333.2 cm/sec2 Ao max P.3 mmHg MV V2 mean: 55.0 cm/sec Ao V2 mean: 92.0 cm/sec MV mean P.4 mmHg Ao mean P.9 mmHg MV V2 VTI: 35.5 cm Ao V2 VTI: 27.3 cm AV (velocity ratio): 0.92 MVA(VTI): 2.2 cm2 LELO(I,D): 2.9 cm2 LELO(V,D): 3.0 cm2 LV V1 max: 131.2 cm/sec SV(LVOT): 78.1 ml PA V2 max: 108.9 cm/sec LV V1 max P.9 mmHg PA V2 mean: 61.4 cm/sec LV V1 mean P.3 mmHg LV V1 mean: 82.0 cm/sec LV V1 VTI: 25.1 cm ECHO/Echo Complete Interpretation Summary The estimated ejection fraction is 60 %. No evidence for diastolic dysfunction. Ordering Physician: Cierra Shepard Referring Physician: Juani Kimball M.D. Performed By: Maribel Torre RCS
[2024-08-13 21:40] VITALS: BP 131/80; PULSE 58; RESP 16; TEMP 36.6; O2SAT 98
[2024-08-13] MEDS: Escitalopram Oxalate 20 MG Tablet PO (21:52)
[2024-08-13] MEDS: Atorvastatin Calcium 40 MG Tablet PO (21:52)
[2024-08-13] MEDS: Losartan Potassium 100 MG Tablet PO (21:52)
[2024-08-13] MEDS: Escitalopram Oxalate 10 MG Tablet 5 MG PO (21:52)
[2024-08-14 04:25] VITALS: BP 110/67; PULSE 61; RESP 16; TEMP 36.7; O2SAT 100
[2024-08-14] MEDS: Polyethylene Glycol 3350 17 GM PACKET PO (04:29)
[2024-08-14] MEDS: 0.9% Saline Lock 10 ML Syringe IV (04:29)
[2024-08-14 04:49] LABS: Absolute Lymphocyte Count 1.84 X10^3/uL (0.83-4.51); Absolute Neutrophil Count 4.4 X10^3/uL (2.0-7.7); Basophil# 0.04 X10^3/uL; Basophil% 0.5 % (0-1); Eosinophil# 0.15 X10^3/uL; Hematocrit 43.1 % (40-54); Hemoglobin 14.5 g/dL (13.0-16.5); Lymphocyte # 1.84 X10^3/ul (0.83-4.51); Lymphocyte % 24.1 % (19-41); Mean Corp Hgb Conc 33.6 g/dL (32-36); Mean Corpuscular Volume 92.1 fL (80-94); Mean Platelet Vol. 9.5 fl (6.2-12.0); Monocyte# 1.19 X10^3/uL; Monocyte% 15.6 % (0-10); NRBC Flagged by Analyzer 0 % (0-5); Neutrophil # 4.41 X10^3/uL (2.7-7.7); Neutrophil % 57.5 % (47-70); Platelet Count 261 K/mm3 (150-450); RBC Distribution Width SD 43.2 fl (35.1-43.9); Red Blood Count 4.68 M/mm3 (4.6-6.2); White Blood Count 7.7 K/mm3 (4.4-11.0)
[2024-08-14 05:27] VITALS: BMI 38.7
[2024-08-14 05:31] LABS: ALB/GLOB Ratio 1.3 RATIO (0.9-2.4); AST(SGOT) 11 U/L (<=37); Alanine Aminotransfer ALT/SGPT 14 U/L (<=46); Alkaline Phosphatase 45 U/L (40-129); Anion Gap 10 (5-15); BUN 17 mg/dL (4-19); Calcium,Total 9.1 mg/dL (7.6-11.0); Carbon Dioxide 26.5 mmol/L (21.0-32.0); Chloride 101 mmol/L (98-108); Creatinine, Serum 0.95 mg/dL (0.70-1.20); EST Glomerular Filtration Rate 89 (>60); Glucose 100 mg/dL (70-99); Potassium 4.3 mmol/L (3.3-5.1); Sodium Level 138 mmol/L (133-145); Total Bilirubin 0.34 mg/dL (0.00-1.30)
[2024-08-14] MEDS: Enoxaparin 150 MG/ML Syringe 130 MG SC ×2 (05:57→17:52)
[2024-08-14 07:42] VITALS: O2SAT 95
[2024-08-14] MEDS: Furosemide 40 MG Tablet PO (08:20)
[2024-08-14] MEDS: Pantoprazole Sodium 40 MG Tablet PO ×2 (08:20→21:22)
[2024-08-14] MEDS: Aspirin E.C. 81 MG Tablet PO (08:23)
[2024-08-14] MEDS: SimETHICONE 80 MG Chewable Tablet PO ×2 (08:24→14:31)
[2024-08-14 08:26] VITALS: BP 140/82; PULSE 58; RESP 17; TEMP 36.6
[2024-08-14] MEDS: oxyCODONE 5 MG Tablet 10 MG PO ×2 (08:41→21:36)
[2024-08-14 14:22] VITALS: BP 129/81; PULSE 69; RESP 16; TEMP 36.8; O2SAT 95
--- NOTE | 2024-08-14 14:39 | PN.HOSP_ITS ---
Reason for Visit Reason for Visit: Diagnoses Acute ischemic heart disease, unspecified (08/12/24) Objective Data Objective Data Vital Signs: Vital Signs Temp Pulse Resp BP Pulse Ox O2 Del Method 98.2 F 69 16 129/81 H 95 Room Air 08/14/24 14:22 08/14/24 14:22 08/14/24 14:22 08/14/24 14:22 08/14/24 14:22 08/14/24 14:22 Oxygen Delivery Method Room Air Weight: 277 lb 12.519 oz Body Mass Index (BMI) 38.7 Intake & Output: Intake and Output for Last 24 Hours 08/12/24 08/13/24 08/14/24 23:59 23:59 23:59 Intake Total 310 / 310 240 / 240 Balance 310 / 310 240 / 240 Lab / Micro Data 08/14/24 04:18 08/14/24 04:18 Labs: Laboratory Results - last 24 hr 08/14/24 04:18: WBC 7.7, RBC 4.68, Hgb 14.5, Hct 43.1, MCV 92.1, MCH 31.0, MCHC 33.6, RDW Std Deviation 43.2, RDW Coeff of [place] 13.0, Plt Count 261, MPV 9.5, Immature Gran % (Auto) 0.300, Neut % (Auto) 57.5, Lymph % (Auto) 24.1, [place] % (Auto) 15.6 H, Eos % (Auto) 2.0, Baso % (Auto) 0.5, Absolute Neuts (auto) 4.4, Absolute Lymphs (auto) 1.84, Nucleated RBC % 0, Sodium 138, Potassium 4.3, Chloride 101, Carbon Dioxide 26.5, Anion Gap 10, BUN 17, Creatinine 0.95, Estim Creat Clear Calc 104.80, Est GFR (MDRD) Non-Af 89, BUN/Creatinine Ratio 18.0, G [place] 100 H, Calcium 9.1, Total Bilirubin 0.34, AST 11, ALT 14, Alkaline Phosphatase 45, Total Protein 7.0, Albumin 4.0, Globulin 3.0, Albumin/Globulin Ratio 1.3 Rhythm Strip Rhythm Strip: Sinus Rhythm Rate: 71 Ectopy: None Physical Exam Narrative Seen and examined. He stated he is abdominal burping and gas feeling is resolved. Has not had bowel movement. Patient was admitted with burning kind of chest pain, shortness of breath while mowing the grass. Currently he is symptom-free. Physical exam General: Alert, Oriented x3, Cooperative. Obesity grade 338.6 kg/m? HEENT: Atraumatic, PERRLA, EOMI, Normocephalic Oral: Deep pharyngeal structures could not be visualized Neck: Supple, No JVD, Negative Carotid Bruits Chest wall/Lungs: Air entry diminished in bilateral lung bases. No crepitation/rhonchi Cardiovascular: Sinus rhythm, Normal S1, Normal S2, systolic murmur present right second ICS. Abdomen: Bowel Sounds Present, Soft, Non Tender, Non-Distended : No dysuria. No renal angle tenderness. No suprapubic tenderness. Extremities: Chronic lower extremity lymphedema wearing knee-high stockings , improved. Capillary Refill Less than 3 Seconds Skin: No rashes, No breakdown Musculoskeletal: No Tenderness to Palpation of Joints or Extremities Neurological: Cranial nerves II-XII grossly intact, DTR 2+/4. No acute focal neurological deficit. Psych/Mental Status: Normal Affect, Appropriate. Assessment & Plan Assessment/Plan (1) ACS (acute coronary syndrome): PLAN: Plan The patient is a 63 y/o M came to ED with exertional chest discomfort with history of chronic lymphedema, indigestion for last couple months. On the day of admission patient had burning chest pain and became short of breath while mowing grass. Quit to smoke no recent cardiac testing 1. Unstable angina/ACS: Patient is being admitted in PCU. Twelve-lead EKG reviewed and shows sinus bradycardia, first-degree AV block, LAD, LVH, possible inferior [place]. 2D echo shows EF 60%, no RWMA. Normal RV size. No significant valvular. Troponins 32, 35 and 32 flat indeterminant. With the convincing chest pain characteristic of unstable angina, patient agreed for cardiac cath on Thursday. On baby aspirin, therapeutic dose of enoxaparin, losartan and atorvastatin. 08/14: Continue same medications. Posted for cardiac catheter tomorrow. No acute issues. #2. Dyspepsia, GERD, worsening: On PPI. Provide will need EGD as an outpatient 08/14: Mild constipation. Psyllium added to senna S. #3. TIA in 2020 with expressive aphasia. Resolved #4. Chronic Kidney Disease Stage II : Admission BUN/Cr 22/0.99, GFR 85, baseline renal function primarily 0.9-1.1, repeat BUN/creatinine normal range 19/0.83 #5. Anxiety and depression: continue patient home escitalopram regimen. #6. Hypertension: Continue home regimen including Lasix, losartan. #7. Hyperlipidemia: Lipid profile LDL 139, TC 205, HDL 53. LDL elevated. #8. 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 Obesity: Weight loss and lifestyle changes encouraged. BMI 38.6 kg #10. Chronic lymphedema: Juan Manuel wraps with lower extremity elevation as able to tolerate #11. Former alcohol abuse: Encourage continued sobriety, notes sober x 41 years. #12. Former tobacco use: Patient is smoked 30 pack years of cigarettes. Quit 31 years ago #13. Chronic COPD/asthma: Currently not on any regimen, PRN albuterol, HOB, IS parameters. #14. DVT prophylaxis: Therapeutic Lovenox. #15. CODE status: Patient does not have healthcare power of attorney lawyer or living will in place but he notes if his medical decisions needed to be made his would be his decision maker. Discussed CODE status at length including difference between FULL code, DNR-CCA and DNR-CC status. Following discussions about the differences in these status, requested Full Code status. Charges/Coding Visit Charges Inpatient E&M: 98237 Subs Hosp L2
[2024-08-14] MEDS: Mag Hydrox/Al Hydrox/Simeth 30 ML UDC PO (20:05)
[2024-08-14 21:15] VITALS: BP 121/84; PULSE 68; RESP 16; TEMP 36.8; O2SAT 95
[2024-08-14] MEDS: Losartan Potassium 100 MG Tablet PO (21:21)
[2024-08-14] MEDS: Atorvastatin Calcium 40 MG Tablet PO (21:21)
[2024-08-14] MEDS: Escitalopram Oxalate 10 MG Tablet 5 MG PO (21:21)
[2024-08-14] MEDS: Escitalopram Oxalate 20 MG Tablet PO (21:21)
[2024-08-14] MEDS: Psyllium 1 PACKET PO (21:22)
[2024-08-14] MEDS: Senna/Docusate Sodium 1 Tablet 2 TABLET PO (21:22)
[2024-08-14] MEDS: 0.9% Normal Saline (1000mL) 1,000 ML 100 ML IV (21:22)
[2024-08-15] VITALS (13 sets, daily range): BP systolic 117–158; BP diastolic 70–93; PULSE 52–61; RESP 16–17; TEMP 36.7; O2SAT 97–100; BMI 38.5
[2024-08-15] MEDS: Aspirin E.C. 81 MG Tablet PO (05:17)
--- NOTE | 2024-08-15 05:55 | EKG12_ITS ---
Test Reason : AM EKG Blood Pressure : */* mmHG Vent. Rate : 58 BPM Atrial Rate : 58 BPM P-R Int : 226 ms QRS Dur : 106 ms QT Int : 458 ms P-R-T Axes : 7 -39 17 degrees QTcB Int : 449 ms Sinus bradycardia with 1st degree A-V block Left axis deviation Cannot rule out Inferior infarct , age undetermined Possible Anterior infarct , age undetermined Abnormal ECG When compared with ECG of 12-Aug-2024 21:16, MANUAL COMPARISON REQUIRED DATA IS UNCONFIRMED Confirmed by WARREN WINN, ANGELICA ([id number]), website/blog editor BHAVANA AGUIRRE ([id number]) on 08/15/2024 9:17:25 AM Referred By: Confirmed By: ANGELICA KELLEY MD
[2024-08-15 06:53] LABS: Absolute Lymphocyte Count 2.12 X10^3/uL (0.83-4.51); Absolute Neutrophil Count 3.9 X10^3/uL (2.0-7.7); Basophil# 0.04 X10^3/uL; Basophil% 0.5 % (0-1); Eosinophil# 0.12 X10^3/uL; Eosinophils% 1.6 % (0-5); Hematocrit 44.2 % (40-54); Hemoglobin 15.1 g/dL (13.0-16.5); Lymphocyte # 2.12 X10^3/ul (0.83-4.51); Lymphocyte % 28.7 % (19-41); Mean Corp Hgb Conc 34.2 g/dL (32-36); Mean Corpuscular Hgb 31.9 pg (27.0-32.0); Mean Corpuscular Volume 93.2 fL (80-94); Mean Platelet Vol. 9.3 fl (6.2-12.0); Monocyte# 1.17 X10^3/uL; Monocyte% 15.9 % (0-10); NRBC Flagged by Analyzer 0 % (0-5); Neutrophil # 3.91 X10^3/uL (2.7-7.7); Platelet Count 272 K/mm3 (150-450); RBC Distribution Width CV 12.9 % (11.6-14.6); RBC Distribution Width SD 44.2 fl (35.1-43.9); Red Blood Count 4.74 M/mm3 (4.6-6.2); White Blood Count 7.4 K/mm3 (4.4-11.0)
[2024-08-15 07:09] LABS: ALB/GLOB Ratio 1.2 RATIO (0.9-2.4); AST(SGOT) 14 U/L (<=37); Alanine Aminotransfer ALT/SGPT 20 U/L (<=46); Albumin, Serum 4.1 g/dL (3.4-4.8); Alkaline Phosphatase 49 U/L (40-129); Anion Gap 10 (5-15); BUN 16 mg/dL (4-19); BUN/Creat Ratio 16.6 RATIO (10-20); Calcium,Total 9.3 mg/dL (7.6-11.0); Carbon Dioxide 27.6 mmol/L (21.0-32.0); Chloride 101 mmol/L (98-108); Creatinine, Serum 0.94 mg/dL (0.70-1.20); EST Glomerular Filtration Rate 90 (>60); Estimated Creatinine Clearance 105.92 ml/min (50-250); Globulin 3.3 g/dL (2.2-4.2); Glucose 98 mg/dL (70-99); Potassium 4.5 mmol/L (3.3-5.1); Protein, Total 7.3 g/dL (5.9-8.4); Sodium Level 139 mmol/L (133-145); Total Bilirubin 0.43 mg/dL (0.00-1.30)
--- NOTE | 2024-08-15 08:48 | PCM.PN.CARD ---
Subjective Subjective Patient seen and evaluated. Underwent cardiac catheterization today. Objective Data Vital Signs: Vital Signs Temp Pulse Resp BP Pulse Ox O2 Del Method 98.0 F 61 16 133/71 H 100 Room Air 08/15/24 03:05 08/15/24 03:05 08/15/24 03:05 08/15/24 03:05 08/15/24 03:05 08/15/24 03:05 Oxygen Delivery Method Room Air Weight: 277 lb 12.519 oz Body Mass Index (BMI) 38.7 Intake & Output: Intake and Output for Last 24 Hours 08/13/24 08/14/24 08/15/24 23:59 23:59 23:59 Intake Total 240 / 240 1000 / 1000 Balance 240 / 240 1000 / 1000 Lab / Micro Data 08/15/24 05:24 08/15/24 05:24 Labs: Laboratory Results - last 24 hr 08/15/24 05:24: WBC 7.4, RBC 4.74, Hgb 15.1, Hct 44.2, MCV 93.2, MCH 31.9, MCHC 34.2, RDW Std Deviation 44.2 H, RDW Coeff of Santana 12.9, Plt Count 272, MPV 9.3, Immature Gran % (Auto) 0.300, Neut % (Auto) 53.0, Lymph % (Auto) 28.7, [place] % (Auto) 15.9 H, Eos % (Auto) 1.6, Baso % (Auto) 0.5, Absolute Neuts (auto) 3.9, Absolute Lymphs (auto) 2.12, Nucleated RBC % 0, Sodium 139, Potassium 4.5, Chloride 101, Carbon Dioxide 27.6, Anion Gap 10, BUN 16, Creatinine 0.94, Estim Creat Clear Calc 105.92, Est GFR (MDRD) Non-Af 90, BUN/Creatinine Ratio 16.6, Glucose 98, Calcium 9.3, Total Bilirubin 0.43, AST 14, ALT 20, Alkaline Phosphatase 49, Total Protein 7.3, Albumin 4.1, Globulin 3.3, Albumin/Globulin Ratio 1.2 Rhythm Strip Rhythm Strip: Sinus Rhythm Rate: 71 Ectopy: None Cardiology Labs/Tests 08/15/24 05:24: WBC 7.4, RBC 4.74, Hgb 15.1, Hct 44.2, MCV 93.2, MCH 31.9, MCHC 34.2, Plt Count 272, MPV 9.3, Immature Gran % (Auto) 0.300, Neut % (Auto) 53.0, Lymph % (Auto) 28.7, [place] % (Auto) 15.9 H, Eos % (Auto) 1.6, Baso % (Auto) 0.5, Absolute Neuts (auto) 3.9, Nucleated RBC % 0, Sodium 139, Potassium 4.5, Chloride 101, Carbon Dioxide 27.6, Anion Gap 10, BUN 16, Creatinine 0.94, Est GFR (MDRD) Non-Af 90, BUN/Creatinine Ratio 16.6, Glucose 98, Calcium 9.3, Total Bilirubin 0.43 Rhythm: EKG: ECHO: Stress Test: Cardiac Cath: PCI: CT Surgery: Holter monitor: EPS: PPM: CXR: Chest CT Scan: Physical Exam Const alert, oriented x3 and no apparent distress General Appearance: cooperative HEENT hearing grossly normal bilaterally Head and Scalp: atraumatic Eyes EOMs intact bilaterally Neck General: normal visual inspection Chest inspection of chest normal and palpation of chest normal Resp normal respiratory effort Auscultation: clear to auscultation bilaterally Cardio regular rate, regular rhythm, S1 normal heart sound and S2 normal heart sound Jugular Venous Distention: JVD GI normal to inspection, nondistended, normoactive bowel sounds Extremity normal capillary refill and no pedal edema Peripheral Pulses: Yes pulses 2+ throughout and femoral pulses present Skin no rashes or lesions noted Neuro oriented x3 and CN's II-XII intact bilaterally Psych Appearance: grossly normal and appropriate Assessment & Plan Assessment/Plan (1) ACS (acute coronary syndrome): PLAN: Patient underwent cardiac catheterization today which demonstrated the following: Normal left main coronary artery. Left anterior descending artery with proximal total occlusion and right to left collaterals. First diagonal vessel with 90% proximal long stenosis. Left circumflex artery nondominant with mild disease. Dominant large right coronary artery with mild disease and right to left collaterals. Mildly reduced left ventricular ejection fraction with mild anterior hypokinesis estimated ejection fraction of 50%. Based on the above angiographic findings and on discussion with the system administration advisor it is felt that the above occlusion is likely chronic and therefore will benefit from referral to a tertiary care institution for the above to be tackled. Arrangements to be made for transfer to a tertiary care facility. (2) Hypertension: PLAN: Continue aggressive risk factor modification.
--- NOTE | 2024-08-15 08:58 | CASEMGMT ---
Insurance review for hospitals In-network with?[employer] M[employer] insurance if transfer is recommended is as follows: [facility], [facility], [place], [facility], [facility], [facility], [place], , [place], [facility], [facility], and [place]. Isha Dorantes, Discharge Planning Ass
--- NOTE | 2024-08-15 09:06 | CL.D_ITS ---
Patient Name: ERIK YUSUF Study Date: 08/15/2024 Performing: Epifanio Do MD Ht: 71 inches 180.34 cm : 1960 Wt: 277.78 lbs 126 kg Age: 63 Gender: male BSA: 2.42 PROCEDURE(S) PERFORMED [id number])LHC/COR/LV CLINICAL PROFILE AND INDICATIONS Indications: Suspected CAD Heart Failure: None Stress/Imaging Stress/Image Study Performed: No CAD Presentations: Unstable angina. CONCLUSIONS Left anterior descending artery which is totally occluded proximally with right to left collaterals and first diagonal vessel with severe disease. The above appears to be chronically occluded RECOMMENDATIONS Will transfer for PCI high risk. DESCRIPTION OF PROCEDURE The patient arrived to the procedure lab. The risks and benefits of the procedure as well as a full description of our services here and current unavailability of surgical backup were fully explained to the patient and/or their significant other prior to the catheterization. The Timeout was completed, verifying the correct patient and procedure. The patient's procedural site was prepped and draped in the usual fashion. Local anesthetic was given subcutaneously to right radial region with Lidocaine 2%. Using a modified Seldinger technique, arterial access was obtained via the right radial artery, a 6Fr sheath was inserted. Right Coronary Artery selective angiography was then performed in multiple views using a 5 Fr. 4.0 [place] catheter. Left Coronary Artery selective angiography was performed in multiple views using a 5 Fr. 4.0 [place] catheter. Left Ventriculography was performed in WILDER projection using a 5 Fr. [place] catheter. LV to AO pullback pressures were then recorded.The arterial sheath was pulled and a TR Band was applied for hemostasis CORONARY ANGIOGRAPHY DOMINANCE: Right Dominant LEFT HEART ASSESSMENT Left Ventricular Ejection Fraction: by LV Gram 50 % Anterior Hypokinesis - Mild Depressed Left Ventricular systolic function LEFT MAIN: Angiographically normal LEFT ANTERIOR DESCENDING ARTERY: This vessel is totally occluded proximally with right to left collaterals DIAGONAL 1: Proximal - Diffusely diseased up to 90 % CIRCUMFLEX ARTERY: Mild luminal irregularities RIGHT CORONARY ARTERY: Mild luminal irregularities less than 30% COLLATERAL FLOW: Collateral flow from Right to Left COMPLICATIONS No Complications PROCEDURE MEDICATIONS Fentanyl 50 mcg IV Versed 1 mg IV Versed 1 mg IV Oxygen: 2 L/min via nasal cannula Heparin given IA 08/15/2024 08:12:42 Verapamil 2.5mg, Ntg 100mcgs, 3000 units of Heparin given IA 08/15/2024 08:12:42 SUMMARY OF HEMODYNAMIC DATA Time AIR REST ECG 07:56:40 Art 136/75 (94) 08:17:46 AO 139/73 (100) SA 08:34:39 LV 122/11, 18 08:41:52 LV 126/13, 21 08:42:01 LV 126/12, 20 08:43:34 LVp 123/10, 20 08:43:40 AOp 132/70 (95) 08:43:47 09:01:16 Signed By Epifanio Do MD On 08/15/2024 09:06:03 Epifanio Do MD
--- NOTE | 2024-08-15 10:33 | NURSING ---
patient has been accepted to [facility] main bed 542 B nurse to nurse [phone] face sheet faxed and hospitalist made of transfer
[2024-08-15] MEDS: 0.9% Normal Saline (1000mL) 1,000 ML 15 ML IV (10:37)
[2024-08-15] MEDS: Furosemide 40 MG Tablet PO (10:38)
[2024-08-15] MEDS: Pantoprazole Sodium 40 MG Tablet PO (10:38)
--- NOTE | 2024-08-15 10:41 | PCM.DC.SUM ---
Providers Date of Admission: 08/12/24 Date of Discharge: 08/15/24 Primary Care Physician: Dr. Juani Kimball MD Consultations 08/12/24 21:42 Consult: Cardiology Routine Consulting Provider: Shantel Yuonger Reason for Consult: Chest Pain, ACS EMERGENT Consult: No MD Notified: Yes Date Notified: 08/12/24 Time Notified: 20:30 Method of Notification: ED Physician Initiated Reason For Visit: ACS Diagnosis Discharge Diagnosis (1) ACS (acute coronary syndrome): Status: Acute Code(s): I24.9 - Acute ischemic heart disease, unspecified (2) Hypertension: Status: Chronic Code(s): I10 - Essential (primary) hypertension Plan #Unstable angina/ACS #CAD #Hx TIA #GERD #Anxiety/depression #HTN Medications at Discharge Home Medications escitalopram oxalate 20 mg tablet 20 mg PO DAILY Depression 10/04/13 furosemide 40 mg tablet 40 mg PO DAILY BP 10/04/13 oxycodone-acetaminophen 5 mg-325 mg tablet 2 tab PO Q4H PRN PRN Severe Pain () ##90 06/07/15 lisinopril 10 mg tablet 10 mg PO DAILY #30 tabs 09/10/20 escitalopram oxalate 5 mg tablet 5 mg PO DAILY Depression 08/12/24 losartan 100 mg tablet 100 mg PO QHS BP 08/12/24 omeprazole 20 mg capsule,delayed release 20 mg PO DAILY BP 08/12/24 tadalafil 10 mg tablet 10 mg PO DAILY PRN ED 08/12/24 Hospital Course Procedures - (cardiac cath) Summary of Care Provided Minutes Spent on Discharge: 20 Hospital Course: #Unstable angina/ACS #CAD #Hx TIA #GERD #Anxiety/depression #HTN Per HPI: The patient is a 63 y/o M w/ PMHx: Hx TIA, Former EtOH abuse (sober x 41 years), Anxiety and Depression, Hx Mild TBI, Former tobacco use, Asthma/COPD, GERD, Chronic pain syndrome, Anxiety and Depression, Obesity, CKD stage II per GFR trending, Chronic lymphedema who presents to [facility] ED on 08/12/24 with history of several months of intermittent indigestion/dyspepsia with associated discomfort in his chest starting initially in the midsternal region with radiation to bilateral upper extremities with a burning/concurrent stabbing type sensation with nausea without emesis with initiation of omeprazole and significant usage of Rolaids outpatient without marked improvement with on day of presentation noted activity, mowing his grass when he started having again the burning sensation now with associated dyspnea and pain to both his arms prompting him to go inside and rest, administer Rolaids and use inhaler with no marked relief at approximately 4 PM and when he attempted to be active again he had recurrent worsening discomfort prompting ED evaluation to be cautious. Patient notes that when his chest discomfort is at its worst it is 10 out of 10 in severity. In the ED upon evaluation he notes pain is currently abated. Workup in the ED included T98.4, heart rate 81, BP 164/95, respiratory rate 18, 96% on room air, most recent repeat vitals heart rate 55, BP 145/76, respiratory rate 18, 98% room air, CBC with WC 8.0, hemoglobin 14.4, platelet 271 without marked shift, BMP with BUN/: 22/0.99, GFR 85, glucose 121, troponin initial 32 with repeat delta 35, pro BNP 64, chest x-ray with no acute cardiopulmonary findings, EKG with sinus rhythm with incomplete left bundle branch block. In the ED patient missed her full-strength aspirin therapy, therapeutic Lovenox, Protonix bolus and simethicone 80 mg p.o. x 1. ED discussed case with manufacturing team leader Dr. Younger given concern for ACS and he requested that patient be administered full-strength aspirin, therapeutic Lovenox with plan for likely cardiac catheterization on Thursday. INTERVAL HISTORY: Patient underwent cardiac catheterization 08/15/2024 which demonstrated LAD totally occluded with proximal collaterals and first diagonal vessel with severe disease, patient was transferred to [facility] for high risk PCI Physical Exam Narrative General: Alert, oriented, no apparent distress HEENT: Atraumatic, normocephalic Eyes: extraocular movements grossly intact Neck: Supple Respiratory: normal respiratory effort Cardiovascular: no edema appreciated GI: nondistended Extremities: Moving all extremities Neuro: No overt focal neurological deficits Psych: Cooperative Weight / BMI Weight Weight: 125.2 kg Body Mass Index (BMI) 38.5 ABG / Lab / Microbiology Data 08/15/24 05:24 08/15/24 05:24 Laboratory: Laboratory Results - last 24 hr 08/15/24 05:24: WBC 7.4, RBC 4.74, Hgb 15.1, Hct 44.2, MCV 93.2, MCH 31.9, MCHC 34.2, RDW Std Deviation 44.2 H, RDW Coeff of [place]ana 12.9, Plt Count 272, MPV 9.3, Immature Gran % (Auto) 0.300, Neut % (Auto) 53.0, Lymph % (Auto) 28.7, [place] % (Auto) 15.9 H, Eos % (Auto) 1.6, Baso % (Auto) 0.5, Absolute Neuts (auto) 3.9, Absolute Lymphs (auto) 2.12, Nucleated RBC % 0, Sodium 139, Potassium 4.5, Chloride 101, Carbon Dioxide 27.6, Anion Gap 10, BUN 16, Creatinine 0.94, Estim Creat Clear Calc 105.92, Est GFR (MDRD) Non-Af 90, BUN/Creatinine Ratio 16.6, Glucose 98, Calcium 9.3, Total Bilirubin 0.43, AST 14, ALT 20, Alkaline Phosphatase 49, Total Protein 7.3, Albumin 4.1, Globulin 3.3, Albumin/Globulin Ratio 1.2 D/C Instructions DC O2, CPAP, BIPAP Needs Home O2 Discharge instructions: No Meaningful Use Info Meaningful Use Meaningful Use Diagnoses (Choose all that apply): AMI AMI/Post PCI/Angioplasty Aspirin given w/in 24hrs of arrival?: Yes ASA at discharge?: Yes Statins at discharge?: Yes Juan Manuel/ARB at discharge?: No Reason Juan Manuel/ARB not ordered:: Not indicated (Patient was transferred before these adjustments could be made) Beta Dante at discharge?: No Reason Beta Dante not ordered:: Drug Interaction (Patient was transferred before these adjustments could be made) Done w/ Acute DE measure.: Yes Ischemic Stroke Statin Dosing Therapy Reference: STATIN DOSE THERAPY REFERENCE: * Patients > 75 years receive moderate or high dose statin therapy. * Patients 75 years or YOUNGER should receive HIGH intensity statin dose unless contraindicated. You will be required to document reason for non-treatment if statin daily dose does not meet guidelines. HIGH DOSE STATIN THERAPY DAILY Atorvastatin > than or = to 40 mg Rosuvastatin > than or = to 20 mg Amlodipine + Atorvastatin > than or = to 2.5/40 mg Ezetimibe + Simvastatin 10/80 mg Simvastatin 80mg Discharge Plan Admission Admit Date/Time: 04/04/25 20:28 Attending Provider: Enedina Leyva Primary Care Provider: Juani Kimball Consulting Providers: Shantel Younger; Cierra Shepard; Clarence Figueroa Discharge Orders/Prescriptions Prescriptions: No Action furosemide 40 MG tablet 40 mg PO DAILY escitalopram oxalate 20 MG tablet 20 mg PO DAILY oxycodone-acetaminophen 1 TABLET tablet 2 tab PO Q4H PRN PRN (Reason: Severe Pain (6-02/17)) Qty: 90 0RF lisinopril 10 mg tablet 10 mg PO DAILY Qty: 30 0RF escitalopram oxalate 5 mg tablet 5 mg PO DAILY omeprazole 20 mg capsule,delayed release(DR/EC) 20 mg PO DAILY losartan 100 mg tablet 100 mg PO QHS tadalafil 10 mg tablet 10 mg PO DAILY PRN (Reason: ED) Referrals / Follow Up: Juani Kimball MD [Primary Care Provider] - Disposition Disposition (needs filled in before D/C Order can be placed): Acute Care Hospital Charges/Coding Visit Charges Inpatient E&M: 40525 Disch Hosp
[2024-08-15] MEDS: oxyCODONE 5 MG Tablet 10 MG PO (10:44)
--- NOTE | 2024-08-15 14:02 | CHAPLAIN ---
Type of Pastoral Visit _x__ Initial Visit ___ Follow-up Visit ___ On-call Visit ___ General Patient Visit ___ Spiritual Assessment ___ Family Conference ___ Bereavement ___ Rapid Response ___ Code Blue ___ Other (describe below) Pastoral Care Referral From _x__ Patient ___ Family ___ Nurse ___ Physician ___ Multi Operation Forming Machine Setter ___ Mobile Disc Jockey ___ Other (describe below) Sacrament/Intervention _x__ Active listening ___ Anointing ___ Caodaism ___ Bereavement ___ Communion ___ Nasreen exploration ___ ___ Life review _x__ Prayer ___ Reconciliation ___ Sacrament of Sick _x__ Supportive presence ___ Wedding ___ Other (describe below) Pastoral Comments patient is eating lunch and waiting for a transfer to another hospital within minutes; pt is agreeable to have a visit and explains his situation; pt has not had a heart cath before and has been in good health mostly so this is very new; pt says that he is handling it all fine and has nurses in the family and many people praying; pt welcomes the presence and prayers of this global project manager; visit ended so pt could finish lunch and get discharged
== END 2024-08-15 13:37 | disposition short-term general hospital (02) | DRG 287 ==
LOC: ED 17:45 → PCU 21:07
PROVIDERS: Admitting Provider Family Medicine; Emergency Provider Emergency Medicine; PCP Internal Medicine; Visit Provider Internal Medicine
DX: I25.110 Atherosclerotic heart disease of native coronary artery with unstable angina pectoris (principal); E66.9 Obesity, unspecified; J44.9 Chronic obstructive pulmonary disease, unspecified; F32.A Depression, unspecified; I12.9 Hypertensive chronic kidney disease with stage 1 through stage 4 chronic kidney disease, or unspecified chronic kidney disease; I25.82 Chronic total occlusion of coronary artery; I44.7 Left bundle-branch block, unspecified; F41.9 Anxiety disorder, unspecified; I89.0 Lymphedema, not elsewhere classified; K21.9 Gastro-esophageal reflux disease without esophagitis; N18.2 Chronic kidney disease, stage 2 (mild); R00.1 Bradycardia, unspecified; E78.5 Hyperlipidemia, unspecified; I44.0 Atrioventricular block, first degree; K59.00 Constipation, unspecified; R73.9 Hyperglycemia, unspecified; G89.4 Chronic pain syndrome; Z86.73 Personal history of transient ischemic attack (TIA), and cerebral infarction without residual deficits; Z68.38 Body mass index [BMI] 38.0-38.9, adult; Z87.898 Personal history of other specified conditions; Z79.899 Other long term (current) drug therapy; Z87.891 Personal history of nicotine dependence
CPT/HCPCS: 36415; 71046; 80048; 80053; 80061; 83036; 83735; 83880; 84484; 85025; 93005; 93306; 93458; 94668; 99152; 99153; 99285; Q9967; A4216; C1769; C1894

== ENCOUNTER → 2024-09-13 | Outpatient (CLI) | payer MEDICARE, SELFPAY ==
--- NOTE | 2024-09-13 10:02 | PCM.CR.HP2 ---
CR - History & Physical General Arrival date:: 09/13/24 Arrival time:: 10:02 Date of Referral:: 08/31/24 Date of CR Evaluation:: 09/13/24 Referring Physician: Dr. Do Primary Diagnosis: PCI w/stenting History of Present Cardiac Event Onset Date PTCA or coronary stenting:: Yes Vessel: LAD Medications Ambulatory Orders ?Medication ?Instructions ?Recorded escitalopram oxalate 20 mg tablet 20 mg PO DAILY Depression 10/04/13 furosemide 40 mg tablet 40 mg PO DAILY BP 10/04/13 oxycodone-acetaminophen 5 mg-325 2 tab PO Q4H PRN PRN Severe Pain 06/07/16 mg tablet () #90 TABLETS escitalopram oxalate 5 mg tablet 5 mg PO DAILY Depression 08/12/24 losartan 100 mg tablet 100 mg PO QHS BP 08/12/24 omeprazole 20 mg capsule,delayed 20 mg PO DAILY BP 08/12/24 release aspirin 81 mg tablet,delayed 81 mg PO QDAY #90 tabs 08/31/24 release (Adult Aspirin Regimen) ezetimibe 10 mg tablet 10 mg PO QDAY #90 tabs 08/31/24 rosuvastatin 40 mg tablet 40 mg PO QDAY #90 tabs 08/31/24 therapeutic multivitamin ([place] 1 tab PO QDAY 08/31/24 tablet) ticagrelor 90 mg tablet (Brilinta) 90 mg PO Q12H #30 tabs 08/31/24 Allergies Allergies acetaminophen (From Tylenol) Allergy (Verified 08/31/24 08:46) Vomiting LYMPHEDEMA ibuprofen Allergy (Verified 08/31/24 08:46) Vomiting LYPHEMEDMA codeine Adverse Reaction (Verified 08/31/24 08:46) Nausea Sleep Disorder Evaluation Hx of Sleep Apnea: No Do you snore loudly (louder than talking or can be heard through closed doors)?: No Do you often feel tired/ fatigued/ sleepy during daytime?: No Has anyone observed you stop breathing during sleep?: No History of Hypertension (for STOP score): Yes STOP Results: Negative Advanced Directives Advanced Directives Do you have a Healthcare Power of Fraternity House Cook?: Yes Living Will: Yes Advance Directives Information Provided: No Advance Directives on File: Yes DNR Order?:: No Past Medical History Covid-19 Screening Physicial Symptoms Other Clinical Concerns Exposure Risk Pertinent Comorbidities 65 years or older:: Yes Has a serious heart condition:: Yes Past Medical Illness Medical History Anxiety and depression Obesity History of TIA (transient ischemic attack) Seizure disorder Lymphedema History of alcohol abuse History of wrist fracture Mild TBI (traumatic brain injury) Chronic pain GERD (gastroesophageal reflux disease) Former smoker Asthma Past Surgical History Surgical History Status post cardiac catheterization History of carpal tunnel surgery History of shoulder surgery History of knee joint replacement Family History Summary Family History Mother Heart disease Hypertension PAF (paroxysmal atrial fibrillation) Heart failure Father Heart disease Hypertension Heart failure COPD (chronic obstructive pulmonary disease) Social History Smoking History Smoking Status: Former smoker Years Smokin Packs Smoked per Day: 1.5 (stopped 31 years ago) Substance Abuse Hx Substance Use: No Occupation Occupation (List type of work in comments):: Retired Hours worked per day:: 8 Social Environment Status Marital Status: Current Living Arrangements Living Environment:: Family Children How many children do you have?: 8 Do any of your children live nearby?: Yes Safety Do you feel safe in your surroundings?: Yes Assistance Do you need any assistance at home?: no Review of Systems Review of Systems Hints Review of Present Symptoms: Reports Shortness of Breath with Exertion, Angina, Dizziness/Lightheadedness, Fatigue, Appetite - Normal, Appetite - Special Diet and Sleep - Normal; Denies Shortness of Breath at Rest, PVD, Operative Discomfort, Wound Healing, Heart Arrhythmia/Irregularities or Sexual Changes Pain Is Patient Pain Free?: No Pain Location: other (arthritis) Pain Level: 02/17 Risk Factor Assessment Chief Complaint Chief Complaint: PCI w/stent Vital Signs Pulse Ox: 97 Blood Pressure: 110/58 Pulse Pulse Rate: 62 Hypertension Blood Pressure Sitting - Right Arm: 110/58 Obesity Height: 5 ft 11 in Weight:: 278 lb Weight in Pounds: 278.0 lbs Body Mass Index (BMI): 38.7 Nutritional Referral for Obesity: Yes Physical Inactivity Physical Inactivity: Reg Exercise 30 min/day Risk Stratification Risk Guidelines: Moderate Risk: Risk Factor for Smoking, Risk Factor for Diabetes, Risk Factor for Sedentary Lifestyle and Risk Factor for Depression and Highest Risk: Risk Factor for Dyslipidemia, Risk Factor for Obesity and Risk Factor for Hypertension For Smoking Smoking Risk Guidelines For Dyslipidemia Dyslipidemia Risk Guidelines For Diabetes Mellitus Diabetes Risk Guidelines For Obesity/Overweight Obesity/Overweight Risk Guidelines For Hypertension Hypertension Risk Guidelines For Sedentary Lifestyle Sedentary Lifestyle Risk Guidelines For Depression Depression Risk Guidelines Family History Family History Mother Heart disease Hypertension PAF (paroxysmal atrial fibrillation) Heart failure Father Heart disease Hypertension Heart failure COPD (chronic obstructive pulmonary disease) Motivation Motivation to Participate On a scale of 1 to 10, how prepared are you to commit to attending program?: 5 What do you see as barriers to successfully being able to complete the program?: nothing What do you see as the benefits of succesfully completing the program? In other words, what do you hope to get out of participating in the program?: better quality of life. Are there issues you are dealing with that will interfere with completing the program?: no Do you have a spouse or signficant other, family or friends who will help support you to complete the program?: yes
[2024-09-13 10:07] VITALS: PULSE 62
--- NOTE | 2024-09-13 10:09 | CR.ITP_ITS ---
Diagnosis General Information Admitting Diagnosis: PCI w/stent Personal Learning Style:: Audio/Visual Barriers to Learning: No Barriers Stage of change r/t lifestyle modifications:: Contemplation Gave educational material for:: Treating Heart Disease, How The Heart Works, What it means to have Heart Disease, How Coronary Artery Disease is Diagnosed, Heart Procedures, What Heart Medications Do, Risk Factors & Modifications, L iving an Active Life, Nutrition, Emotions & Heart Disease, Stress Management & Relaxation and Sleep Disorders & Heart Disease Education/Goals Cardiac Rehabilitation Goals Personal Goals: Initial Assessment: Improve energy level, Participate in home exercise program, Improve muscle strength and endurance, Improve diet and eating habits (eat healthier) and Control risk factors (learn risk factor modification) Scale for measuring improvement of personal goals Diagnosis & Disease Process Outcomes/Goals: Pt IDs own risk factors & lifestyle modifications by Session 10, Verbalizes symptoms of angina & response by session 3., Pt independently manages and Other Additional Outcomes/Goals: Plan/Interventions: Assist Pt to ID & engage in lifestyle modification to reduce CVD risk, Instruct on individual risk factors, Review symptoms of angina & emergency actions, Review secondary diagnosis & identify educational needs. and Other see comment 30 day Reassessments:: Not Met 30 day Reassessments:: Not Met 30 day Reassessments:: Not Met 30 day Reassessments:: Not Met Final Reassessments:: Not Met Safety Referral to Physical Therapy: No Referral to [facility] Case Management: No Fall Risk Assessed:: Yes Assistive Devices:: None Exercise - Initial Assessment Visit Date of Eval: 09/13/24 (initial eval ) Mets: Pre-: >3 METS for 30 minutes by discharge, >5 METS for 30 minutes by discharge, >7 METS for 30 minutes by discharge and Unable to meet goal due to: (see comment below) Physician Prescribed Exercise Modalities: Treadmill, Rower, Schwinn Airdyne AD-7, SciFit Stepper, SciFit Pro- II Ergometer and SciFit Lateral Truck Loader And Unloader Frequency: 3x/week for 12 weeks [36 sessions] Intensity: 60-80% of age predicted maximum heart rate reserve Duration: 30 - 45 minutes Current METSs:: 3 Target Heart Rate:: 92-116 Resting Blood Pressure: 110/58 EKG Type: SB w/ 1st degree A-V block Outcomes & Goals Goals:: Verbalizes understanding of THR, RPE & goal METS by session 6, Documents in home exercise log/reports 30 min aerobic 5 day/wk by DC, Demonstrates accurate pulse taking by DC and Other additional outcome/goals: see below Intervention & Plan Exercise Program Goals: Instruct on personal THR & RPE, Instruct on MET level & personal MET goal, Show patient to take own pulse /validate performance until accurate, Instruct on home exercise and Other additional plan/int Physical Activity Home Exercise Physical Activity - Home Exercise: Safe Exercise, Warm-up, Self-monitoring, Cool-Down, Home Exercise > 30 min Daily and Sitting Time <3 hours/daily Outcomes & Goals Outcomes/Goals: Demonstrates correct Warm-up/exercise Cool-Down (S3) if = 2.5 METs, Verbalizes symptoms of exercise intolerance by Session 3 (S3), Demonstrate safe equipment use (S3) & follows exercise prescrition (6) and Other: See below Intervention & Plan Plan/Intervention: Instruct warm-up & cool-down if exercising at > 2 METs, Instruct on symptoms of exercise intolerance & actions to take, Instruct & monitor on saf, Assess intial functional capacity & safety risk and Other See below Nutrition - Initial Assessment Program Goals Nutrition Program Goals Patient has diagnosis of Hyperlipidemia (ICD E78)?: Yes Visit Date of Eval: 09/13/24 (initial eval ) Cholesterol/Lipids (Other Core Measures) Determine presence & major risk factors that modify LDL goal: Cigarette smoking, Hypertension or hypertensive medication, Low HDL cholesterol <40 mg/dL*, Family history of premature CHD in Male < 55 years: female <65 yearsFa and Age men > 45 years; women >/= 55 years Outcomes/Goals: Pt IDs own risk factors & lifestyle modifications by Session 10, Verbalizes symptoms of angina & response by session 3., Pt independently manages and Other Additional Outcomes/Goals: Intervention/Plan: Advocate for lipid panel cholesterol medication if applicable, Instruct on personal lipid levels & lipid goals/NCEP guidelines, Instruct on cholesterol and Other additional plan/int Referral to dietitian:: Yes Diabetes (Other Core Measures) Diabetes Type: Not Applicable Weight Mgt (Other Care) Height: 5 ft 11 in Weight:: 278 lb BMI: 38.7 Diagnosis Overweight/Obesity BMI> 30% ICD-10 E66: Yes Diagnosis High BMI/Morbid Obesity BMI> 35% ICD-10 Z68: Yes Outcomes/Goals: Pt sets, maintains & shows weight loss goal & trend during rehab and Other additional outcomes/goals Intervention/Plan: Instruct on ideal BMI & set weight loss goal w/patient, Assist pt to ID & incorporate diet changes for weight loss by S9, Refer to Structured Weight Loss program as appropriate, Encourage goal of using 250- 300dcal per session for weight loss and Other additional plan/interventions Healthy Eating Habits Will attend diet classes:: Yes Outcomes/Goals:: Consume diet rich in vegs,fruits,whole grain/high fiber,fish,lean meat, Limit sat/trans fats,cholesterol & added salts & sugars and Other additional outcome/goals: Intervention/Plan:: Assess current eating habits and Other Additional plan/interventions Education Gave educational materials for:: Signs & symptoms of hypoglycemia, Signs & symptoms of hyperglycemia, Relate diabetes to coronary artery disease and Healthy eating Core - Initial Assessment Visit Date of Eval: 09/13/24 (initial eval ) Medication Compliance Preventative Medication(s):: Aspirin, Ticagrelor/P2Y12 inhibitor, Statin/lipid and ARB (Angiotensi Rcap) H/O mental health issues: depression, anxiety, or addiction?: Yes Doesn?t believe in the benefits of treatment?: No Believes medications are unnecessary or harmful?: No Has a concern about medication side effects?: No Expresses concern over the cost of medications?: No Outcomes/Goals: Verbalizes medications,desired effect & common side effects @ DC, Pt self-reports following medication regimen, Keeps card in wallet w/medications listed by DC and Other additional outcome/goals: Interventions/plans: Instruct on medication effects & side effects, Review medication list w/patient every two weeks, Instruct importance of taking meds as ordered & assist problem solving and Other additional Tobacco Use Tobacco Use: Non-smoker How long ago did you quit using tobacco products?: Greater than or equal to 6 months ago Years Smokin (stopped 31 years ago) Hypertension Hypertension Diagnosis:: Hypertension ICD-10 I10 Resting Blood Pressure:: 110/58 [place] [employer] Hypertension Guidelines Outcomes/Goals: Able to verbalize/achieve optimal blood pressure <130/80, Incorporates diet changes & exercise for blood pressure control by DC and Other additional outcomes/goals Interventions/plan: Instruct on optimal blood pressure, hypertension & medications, Instruct on effects of sodium, alcohol, stress, exercise &hypertension and Other additional plan/interventions Tobacco Cessation Referral Smoking Cessation Referral:: No Individual Education/Counseling:: No Education Schedule Given:: Yes Psychosocial - Initial Assess VIsit Date of Eval: 09/13/24 (initial eval ) History of previous Mental disease:: Yes (Pt is on Lexapro for depression) History of Emotional Disorders: Depression (Pt is on Lexapro) Target Goals Target Goals Psychosocial Test Tool Used:: Immunetics QOL Cardiac and PHQ-9 Questionnaire phq-9 Severity See PHQ-9 Score: 4 Referral to Behavioral Health PS - Interventions: Yes: Attend Stress Management Classes Outcomes/Goals: See list Psychosocial Outcomes/Goals:: ID's personal stressors & 2 strategies to manage stress by discharge and Other Additional outcome/goals: Intervention/Plan: See List Interventions/Plan:: Assess stressors,coping strategies & signs of derpression on admission, Instruct/assist pt to develop coping & personal stress Mgt strategies, Refer to Behavioral Health if appropriate, Refer to Physician if appropriate, Instruct patient to recognize signs & symptoms of depression, Instruct patient to recog and Other additional plan/intervention Comments:: Pt is on Lexapro for depression Patient Health Questionnaire PHQ-9 Screening Initial Assessment: 1. Little interest or pleasure in doing things: Several days 2. Feeling down, depressed, or hopeless: Several days 3. Trouble falling or staying asleep, or sleeping too much: Not at all 4. Feeling tired or having little energy: Several days 5. Poor appetite or overeating: Several days 6. Feeling bad about yourself -- or that you are a failure or have let yourself or your family down: Not at all 7. Trouble concentrating on things, such as reading the newspaper or watching television: Not at all 8. Moving or speaking so slowly that other people could have noticed. Or the opposite - being so fidgety or restless that you have been moving around a lot more than usual: Not at all 9. Thoughts that you would be better off , or of hurting yourself in some way: Not at all How difficult have these problems made it for you to do your work, take care of things at home, or get along with other people?: Somewhat difficult Total Score: 4 WINTER-Q SV Test Statements CAD is a disease of the arteries in the heart: False Examples of risk factors for heart disease: True Angina is chest pain or discomfort: True The benefits of resistance training include: True Eating more meat and dairy products: False Anti-platelet medications such as aspirin are important: True The only effective way to manage stress: False An exercise warm-up slowly increases heart rate: True Prepared, processed foods usually have high sodium: True Depression is common after a heart attack: True The statin medications lower cholesterol: True To control blood pressure, lower the amount of sodium: True If someone gets chest discomfort during walking: False Transfats are partially hydrogenated vegetable oils: I Don't Know Sleep apnea that is not treated increases the risk: False To control cholesterol, one should become a vegetarian: True Someone knows if he/she is exercising at the right level: True Diabetes cannot be prevented with exercise & health eating: False Stress is a large risk for heart attack: True A diet that can help lower blood pressure is rich in: True Total Score Total Correct Responses: 18 Self-Efficacy 6-Item Scale Initial Assessment: We would like to know how confident you are in doing certain activities. Please select your confidence level for: Fatigue Select Number: 7 Physical Discomfort or Pain Select Number: 7 Emotional Distress Select Number: 7 Other Symptoms or Health Problems Select Number: 7 Different Tasks and Activities Select Number: 7 Medication Select Number: 7 Total Score:: 7 Nutrition Survey Nutrition Survey Instructions Scoring Instructions Nutrition Survey Initial: Have you lost >10 lbs over the past 2 months without trying?: No Are you following a special diet at home for diabetes, low fat, or low salt?: No Are you interested in meeting with a dietitian for help understanding your diet?: Yes Do you eat less than 3 meals a day?: Yes Do you eat fatty meats (parham, sausage, ribs, etc), fried foods, desserts, large amounts of salad dressings, margarine, butter, or cheese most days?: No Do you have food allergies? [Enter types in comment field]: No Do you eat in restaurants more than 3 times a week?: No Do you season food with salt, seasoning salt, or garlic salt?: Yes Do you used canned, boxed, frozen meals, or soups, seasoning packets?: No Total Score:: 3 Exercise - 30-day Assessment Physician Prescribed Exercise Modalities: Treadmill, Rower, Schwinn Airdyne AD-7, SciFit Stepper, SciFit Pro- II Ergometer and SciFit Lateral Truck Loader And Unloader Exercise - 60-day Assessment Physician Prescribed Exercise Modalities: Treadmill, Rower, Schwinn Airdyne AD-7, SciFit Stepper, SciFit Pro- II Ergometer and SciFit Lateral Truck Loader And Unloader Exercise - 90-day Assessment Physician Prescribed Exercise Modalities: Treadmill, Rower, Schwinn Airdyne AD-7, SciFit Stepper, SciFit Pro- II Ergometer and SciFit Lateral Truck Loader And Unloader Exercise - Final/Discharge Physician Prescribed Exercise Modalities: Treadmill, Rower, Schwinn Airdyne AD-7, SciFit Stepper, SciFit Pro- II Ergometer and SciFit Lateral [place] Frequency: 3x/week for 12 weeks [36 sessions] Intensity: 60-80% of age predicted maximum heart rate reserve Current METSs:: 3 Target Heart Rate:: 92-116 Nutrition - 30-Day Assessment Weight Mgt (Other Care) Height: 5 ft 11 in Weight:: 278 lb BMI: 38.7 Nutrition - 60-Day Assessment Weight Mgt (Other Care) Height: 5 ft 11 in Weight:: 278 lb BMI: 38.7 Core - 30-Day Assessment Tobacco Use Years Smokin (stopped 31 years ago) Core - Final Assessment Hypertension Resting Blood Pressure:: 110/58 [place] [employer] Hypertension Guidelines Core - 60-Day Assessment Hypertension Resting Blood Pressure:: 110/58 [place] [employer] Hypertension Guidelines Psychosocial - 30-Day Assess Target Goals Target Goals Referral to Behavioral Health PS - Interventions: Yes: Attend Stress Management Classes Psychosocial - 60-Day Assess Target Goals Target Goals Referral to Behavioral Health PS - Interventions: Yes: Attend Stress Management Classes Psychosocial - 90-Day Assess Target Goals Target Goals Referral to Behavioral Health PS - Interventions: Yes: Attend Stress Management Classes Psychosocial - Final Assessmen Target Goals Target Goals Psychosocial Test phq-9 Severity See PHQ-9 Score: 4 Referral to Behavioral Health PS - Interventions: Yes: Attend Stress Management Classes Nutrition - 90-Day Assessment Weight Mgt (Other Care) Height: 5 ft 11 in Weight:: 278 lb BMI: 38.7 Nutrition - Final Assessment Program Goals Patient has diagnosis of Hyperlipidemia (ICD E78)?: Yes Weight Mgt (Other Care) Height: 5 ft 11 in Weight:: 278 lb BMI: 38.7
[2024-09-13 10:34] VITALS: BP 110/58; O2SAT 97
[2024-09-13 11:06] VITALS: BP 110/58; BMI 38.7
[2024-09-13 11:07] VITALS: BMI 38.7
== END | disposition home or self-care (01) ==
LOC: CR 09:55
PROVIDERS: PCP Internal Medicine; Referring Provider Internal Medicine Cardiovascular Disease; Visit Provider Internal Medicine Cardiovascular Disease
DX: Z95.5 Presence of coronary angioplasty implant and graft (principal); I89.0 Lymphedema, not elsewhere classified; F41.9 Anxiety disorder, unspecified; F32.A Depression, unspecified; K21.9 Gastro-esophageal reflux disease without esophagitis; G89.29 Other chronic pain; Z86.73 Personal history of transient ischemic attack (TIA), and cerebral infarction without residual deficits; Z79.82 Long term (current) use of aspirin; Z79.899 Other long term (current) drug therapy; Z87.891 Personal history of nicotine dependence; E66.9 Obesity, unspecified; Z68.38 Body mass index [BMI] 38.0-38.9, adult; I10 Essential (primary) hypertension; E78.5 Hyperlipidemia, unspecified

== ENCOUNTER 2024-09-21 10:15 | Outpatient (RCR) | payer MEDICARE, SELFPAY ==
[2024-09-13 11:06] VITALS: BMI 38.7
== END 2024-10-08 23:59 ==
LOC: CR 10:15
PROVIDERS: PCP Internal Medicine; Referring Provider Internal Medicine Cardiovascular Disease; Visit Provider Internal Medicine Cardiovascular Disease
DX: Z95.5 Presence of coronary angioplasty implant and graft (principal)
CPT/HCPCS: 93798

== ENCOUNTER 2024-10-10 09:09 | Outpatient (RCR) | payer MEDICARE, SELFPAY ==
[2024-09-13 11:06] VITALS: BMI 38.7
--- NOTE | 2024-10-13 08:06 | CR.ITP_ITS ---
Exercise - Initial Assessment Visit Session #:: 2 Physician Prescribed Exercise Modalities: Schwinn Airdyne AD-7, SciFit Stepper and SciFit Pro-II Ergometer Nutrition - Initial Assessment Weight Mgt (Other Care) Height: 5 ft 11 in Weight:: 277 lb 8 oz BMI: 38.7 Psychosocial - Initial Assess Target Goals Target Goals Referral to Behavioral Health PS - Interventions: Yes: Attend Stress Management Classes Patient Health Questionnaire PHQ-9 Screening 30-Day Re-eval Assessment: 1. Little interest or pleasure in doing things: Several days 2. Feeling down, depressed, or hopeless: Several days 3. Trouble falling or staying asleep, or sleeping too much: Not at all 4. Feeling tired or having little energy: Several days 5. Poor appetite or overeating: Several days 6. Feeling bad about yourself -- or that you are a failure or have let yourself or your family down: Not at all 7. Trouble concentrating on things, such as reading the newspaper or watching television: Not at all 8. Moving or speaking so slowly that other people could have noticed. Or the opposite - being so fidgety or restless that you have been moving around a lot more than usual: Not at all 9. Thoughts that you would be better off , or of hurting yourself in some way: Not at all How difficult have these problems made it for you to do your work, take care of things at home, or get along with other people?: Not difficult at all Total Score: 4 Self-Efficacy 6-Item Scale 30-Day Re-eval Assessment: We would like to know how confident you are in doing certain activities. Please select your confidence level for: Fatigue Select Number: 7 Physical Discomfort or Pain Select Number: 7 Emotional Distress Select Number: 7 Other Symptoms or Health Problems Select Number: 7 Different Tasks and Activities Select Number: 7 Medication Select Number: 7 Total Score:: 7 Nutrition Survey Nutrition Survey Instructions Scoring Instructions Exercise - 30-day Assessment Visit Date of Eval: 10/13/24 Session #:: 2 (Pt is currently on hold due to severe body pain. ) Physician Prescribed Exercise Modalities: Schwinn Airdyne AD-7, SciFit Stepper and SciFit Pro-II Ergometer Frequency: 3x/week for 12 weeks [36 sessions] Intensity: 60-80% of age predicted maximum heart rate reserve Duration: 30 - 45 minutes Current METSs:: 2.6 Target Heart Rate:: 92-116 Current RPE:: 10-12 Maximum Excercise HR:: 114 Resting Blood Pressure: 128/74 Maximum Exercise Blood Pressure: 156/78 EKG Type: NSR to ST with a rare PAC/PVC. Outcomes & Goals Goals:: Verbalizes understanding of THR, RPE & goal METS by session 6, Documents in home exercise log/reports 30 min aerobic 5 day/wk by DC, Demonstrates accurate pulse taking by DC and Other additional outcome/goals: see below Intervention & Plan Exercise Program Goals: Instruct on personal THR & RPE, Instruct on MET level & personal MET goal, Show patient to take own pulse /validate performance until accurate, Instruct on home exercise and Other additional plan/int Physical Activity Home Exercise Physical Activity - Home Exercise: Safe Exercise, Warm-up, Self-monitoring, Cool-Down, Home Exercise > 30 min Daily and Sitting Time <3 hours/daily Outcomes & Goals Outcomes/Goals: Demonstrates correct Warm-up/exercise Cool-Down (S3) if = 2.5 METs, Verbalizes symptoms of exercise intolerance by Session 3 (S3), Demonstrate safe equipment use (S3) & follows exercise prescrition (6) and Other: See below Intervention & Plan Plan/Intervention: Instruct warm-up & cool-down if exercising at > 2 METs, Instruct on symptoms of exercise intolerance & actions to take, Instruct & monitor on saf, Assess intial functional capacity & safety risk and Other See below 30-day Reassessments 30 day Reassessments:: Not Met Reassessment Notes & Comments:: RPE explained to pt. Pt was able to demonstrate understanding in his daily sessions. Exercise - 60-day Assessment Physician Prescribed Exercise Modalities: Torri Correa AD-7, SciFit Stepper and SciFit Pro-II Ergometer Exercise - 90-day Assessment Physician Prescribed Exercise Modalities: Torri Correa AD-7, SciFit Stepper and SciFit Pro-II Ergometer Exercise - Final/Discharge Physician Prescribed Exercise Modalities: Torri Correa AD-7, SciFit Stepper and SciFit Pro-II Ergometer Nutrition - 30-Day Assessment Program Goals Nutrition Program Goals Patient has diagnosis of Hyperlipidemia (ICD E78)?: Yes Visit Date of Eval: 10/13/24 Session #:: 2 (Pt is currently on hold due to severe body pain. ) Cholesterol/Lipids (Other Core Measures) Determine presence & major risk factors that modify LDL goal: Cigarette smoking, Hypertension or hypertensive medication, Low HDL cholesterol <40 mg/dL*, Family history of premature CHD in Male < 55 years: female <65 yearsFa and Age men > 45 years; women >/= 55 years Outcomes/Goals: Pt IDs own risk factors & lifestyle modifications by Session 10, Verbalizes symptoms of angina & response by session 3., Pt independently manages and Other Additional Outcomes/Goals: Intervention/Plan: Advocate for lipid panel cholesterol medication if applicable, Instruct on personal lipid levels & lipid goals/NCEP guidelines, Instruct on cholesterol and Other additional plan/int Diabetes (Other Core Measures) Diabetes Type: Not Applicable Weight Mgt (Other Care) Height: 5 ft 11 in Weight:: 277 lb 8 oz BMI: 38.7 Diagnosis Overweight/Obesity BMI> 30% ICD-10 E66: Yes Diagnosis High BMI/Morbid Obesity BMI> 35% ICD-10 Z68: Yes Outcomes/Goals: Pt sets, maintains & shows weight loss goal & trend during rehab and Other additional outcomes/goals Intervention/Plan: Instruct on ideal BMI & set weight loss goal w/patient, Assist pt to ID & incorporate diet changes for weight loss by S9, Refer to Structured Weight Loss program as appropriate, Encourage goal of using 250- 300dcal per session for weight loss and Other additional plan/interventions Healthy Eating Habits Will attend diet classes:: Yes Outcomes/Goals:: Consume diet rich in vegs,fruits,whole grain/high fiber,fish,lean meat, Limit sat/trans fats,cholesterol & added salts & sugars and Other additional outcome/goals: Intervention/Plan:: Assess current eating habits and Other Additional plan/interventions 30-day Reassessments:: Not Met Reassessment Notes & Comments:: Pt will attend nutrition class upon his return to rehab. Education Gave educational materials for:: Signs & symptoms of hypoglycemia, Signs & symptoms of hyperglycemia, Relate diabetes to coronary artery disease and Healthy eating Nutrition - 60-Day Assessment Weight Mgt (Other Care) Height: 5 ft 11 in Weight:: 277 lb 8 oz BMI: 38.7 Core - 30-Day Assessment Visit Date of Eval: 10/13/24 Session #:: 2 Medication Compliance Preventative Medication(s):: Aspirin, Ticagrelor/P2Y12 inhibitor, Statin/lipid and ARB (Angiotensi Rcap) H/O mental health issues: depression, anxiety, or addiction?: Yes Doesn’t believe in the benefits of treatment?: No Believes medications are unnecessary or harmful?: No Has a concern about medication side effects?: No Expresses concern over the cost of medications?: No Outcomes/Goals: Verbalizes medications,desired effect & common side effects @ DC, Pt self-reports following medication regimen, Keeps card in wallet w/medications listed by DC and Other additional outcome/goals: Interventions/plans: Instruct on medication effects & side effects, Review medication list w/patient every two weeks, Instruct importance of taking meds as ordered & assist problem solving and Other additional Tobacco Use Tobacco Use: Non-smoker How long ago did you quit using tobacco products?: Greater than or equal to 6 months ago (smoked for 16 years and stopped 31 years ago) Outcomes/Goals: Smoking cessation achieved or maintained by discharge, Identify aids/strategies for achieving smoking cessation by session 6 and Other additional outcome/goals Interventions/plan: Instruct on effects of smoking & provide smoking cessation resource, Assist pt to set quit date & provide encouragement, Assist pt to develop strategies to achieve/maintain quit date, Assist pt w/nicotine replacement & medication for cessation success and Other additional plan/interventions 30-day Reassessments:: Met Reassessment Notes & Comments:: pt is a nonsmoker now. Hypertension Hypertension Diagnosis:: Hypertension ICD-10 I10 Resting Blood Pressure:: 128/74 [place] [employer] Hypertension Guidelines Peak Exercise Blood Pressure:: 156/78 Outcomes/Goals: Able to verbalize/achieve optimal blood pressure <130/80, Incorporates diet changes & exercise for blood pressure control by DC and Other additional outcomes/goals Interventions/plan: Instruct on optimal blood pressure, hypertension & medications, Instruct on effects of sodium, alcohol, stress, exercise &hypertension and Other additional plan/interventions 30 day Reassessments:: Progressing Reassessment Notes & Comments:: Will continue to monitor BP's upon pt's return to rehab Tobacco Cessation Referral Smoking Cessation Referral:: No Individual Education/Counseling:: No Education Schedule Given:: Yes Psychosocial - 30-Day Assess VIsit Date of Eval: 10/13/24 Session #:: 2 (Pt is currently on hold due to severe body pain. ) History of previous Mental disease:: Yes History of Emotional Disorders: Depression (Pt is on lexapro for depression.) Target Goals Target Goals Psychosocial Test Tool Used:: PHQ-9 Questionnaire phq-9 Severity See PHQ-9 Score: 4 Referral to Behavioral Health PS - Interventions: Yes: Attend Stress Management Classes Outcomes/Goals: See list Psychosocial Outcomes/Goals:: ID's personal stressors & 2 strategies to manage stress by discharge and Other Additional outcome/goals: Intervention/Plan: See List Interventions/Plan:: Assess stressors,coping strategies & signs of derpression on admission, Instruct/assist pt to develop coping & personal stress Mgt strategies, Refer to Behavioral Health if appropriate, Refer to Physician if appropriate, Instruct patient to recognize signs & symptoms of depression, Instruct patient to recog and Other additional plan/intervention 30-day Reassessments: 30 day Reassessments:: Not Met Reassessment Notes & Comments:: Pt is on Lexapro for depression. Psychosocial - 60-Day Assess Target Goals Target Goals Referral to Behavioral Health PS - Interventions: Yes: Attend Stress Management Classes Outcomes/Goals: See list Psychosocial Outcomes/Goals:: ID's personal stressors & 2 strategies to manage stress by discharge and Other Additional outcome/goals: Psychosocial - 90-Day Assess Target Goals Target Goals Referral to Behavioral Health PS - Interventions: Yes: Attend Stress Management Classes Psychosocial - Final Assessmen Target Goals Target Goals Referral to Behavioral Health PS - Interventions: Yes: Attend Stress Management Classes Nutrition - 90-Day Assessment Weight Mgt (Other Care) Height: 5 ft 11 in Weight:: 277 lb 8 oz BMI: 38.7 Nutrition - Final Assessment Weight Mgt (Other Care) Height: 5 ft 11 in Weight:: 277 lb 8 oz BMI: 38.7
[2024-10-13 08:25] VITALS: BP 128/74; BMI 38.7
== END 2024-11-07 23:59 ==
LOC: CR 09:09
PROVIDERS: PCP Internal Medicine; Referring Provider Internal Medicine Cardiovascular Disease; Visit Provider Internal Medicine Cardiovascular Disease
DX: Z95.5 Presence of coronary angioplasty implant and graft (principal)
CPT/HCPCS: 93798

== ENCOUNTER → 2024-11-08 | Outpatient (CLI) | payer MEDICARE, SELFPAY ==
[2024-10-13 08:25] VITALS: BMI 38.7
--- NOTE | 2024-11-08 08:48 | ART_ITS ---
Reason For Study Reason For Study: BLE PAIN Procedure A bilateral lower extremity continuous wave Doppler with analog waveform analysis,segmental pressures,and ankle brachial indexes without exercise. Left Segmental Pressures Left brachial= 141mmHg. Left posterior tibial artery = 171mmHg. Left dorsalis pedis artery = 170mmHg. The left posterior tibial artery waveforms are triphasic. The left dorsalis pedis waveforms are triphasic. Right Segmental Pressures Right brachial= 136mmHg. Right posterior tibial artery = 173mmHg. Right dorsalis pedis artery = 166mmHg. The right posterior tibial artery waveforms are triphasic. The right dorsalis pedis waveforms are triphasic. Indices The right resting ankle brachial index is 1.23. The right ankle brachial index by the posterior tibial artery is 1.23. The right ankle brachial index by the dorsalis pedis is 1.18. The left resting ankle brachial index is 1.21. The left ankle brachial index by the posterior tibial artery is 1.21. The left ankle brachial index by the dorsalis pedis is 1.21. VL/Ankle Brachial Index Interpretation Summary Right ZOE 1.23, normal. Doppler/PVR waveforms of the right ankle normal at rest . Left ZOE 1.21, normal. Doppler/PVR waveforms of the left ankle normal at rest. Ordering Physician: Siddharth Mckeon Referring Physician: Juani Kimball Performed By: Brittani Quevedo RVPrashant, RDCS
== END | disposition home or self-care (01) ==
LOC: CVS 08:47
PROVIDERS: PCP Internal Medicine; Referring Provider Student in an Organized Health Care Education/Training Program; Visit Provider Student in an Organized Health Care Education/Training Program
DX: I73.9 Peripheral vascular disease, unspecified (principal)
CPT/HCPCS: 93922

== ENCOUNTER 2024-11-09 07:38 | Outpatient (RCR) | payer MEDICARE, SELFPAY | END 2024-12-08 23:59 | LOC: CR 07:38 | PROVIDERS: PCP Internal Medicine; Referring Provider Internal Medicine Cardiovascular Disease; Visit Provider Internal Medicine Cardiovascular Disease | DX: Z95.5 Presence of coronary angioplasty implant and graft (principal) | CPT/HCPCS: 93798 ==

== ENCOUNTER → 2025-02-20 | Outpatient (CLI) | payer MEDICARE, SELFPAY ==
[2025-02-20 10:26] LABS: AST(SGOT) 11 U/L (<=37); Alanine Aminotransfer ALT/SGPT 17 U/L (<=46); Albumin, Serum 4.1 g/dL (3.4-4.8); Alkaline Phosphatase 48 U/L (40-129); Bilirubin, Direct 0.14 mg/dL (0.00-0.30); Cholesterol 160 mg/dL (<=200); Globulin 3.2 g/dL (2.2-4.2); Low Density Lipoprotein Calc. 80 mg/dL; Triglycerides 62 mg/dL; Very Low Density Lipoprotein 12 mg/dL (5-40); cholesterol:hdl ratio screen 2.36
== END | disposition home or self-care (01) ==
LOC: LAB 09:09
PROVIDERS: PCP Internal Medicine; Referring Provider Student in an Organized Health Care Education/Training Program; Visit Provider Student in an Organized Health Care Education/Training Program
DX: E78.2 Mixed hyperlipidemia (principal)
CPT/HCPCS: 36415; 80061; 80076